=== PATIENT | female | born 1955 | race African-American/Black ===

== ENCOUNTER 2016-02-18 08:08 | Inpatient (IN) | payer MEDICARE, OTHER ==
[~2016-02-18] VITALS: Ht 171.4 cm; Wt 116.7 kg
[~2016-02-18 08:08] MED LIST: ACET500T68 PO; AMIO200T2 PO; ASPI81TA2 PO; CALC1TAB77 PO; CARV25TA2 PO; CARV6.25 PO; DESO15OI3 TP; DIPH25TA64 PO; ESOM40CA PO; FLUT16SP2 NS; LEVO500T38 PO; LOSA25TA4 PO; METO25TA2 PO; METO25TA4 PO; POTA10TA31 PO; SPIR25TA3 PO; TORS20TA2 PO; WARF2.5T7 PO; WARF5TAB7 PO
--- NOTE | 2016-02-18 08:42 | PHYS DOC ---
Past Medical History Past Medical History: A-Fib, Hypotension, ME Additional Past Medical Histor: ENLARGED LIVER Past Surgical History: Cholecystectomy, Pacemaker, Tonsillectomy Additional Past Surgical Histo: MITRAL VALVE REPLACED , GALLSTONE REMOVAL, HERNIA Alcohol Use: None Drug Use: None Adult General Chief Complaint Chief Complaint: RAPID HEART RATE HPI HPI Patient is a 60 year old female who presents with complaint of generalized weakness and fast heart rate. Patient states that approximately 1 hour prior to arrival, she felt her internal defibrillator shocked twice. Patient has history of atrial fibrillation and follows at [facility] with her cardiology group. The patient states that she has noticed a high heart rate over the past few days. The patient currently denies any nausea or pain at this time. The patient states that she does feel generalized fatigue but otherwise no symptoms. Patient states that her heart rate does continue to be high at this time though it seems to be slowing down since her initial shock. Review of Systems Review of Systems Constitutional: Generalized fatigue, Denies fever or chills [] Eyes: Denies change in visual acuity, redness, or eye pain [] HENT: Denies nasal congestion or sore throat [] Respiratory: Denies cough or shortness of breath [] Cardiovascular: Tachycardia, denies chest pain [] GI: Denies abdominal pain, nausea, vomiting, bloody stools or diarrhea [] : Denies dysuria or hematuria [] Musculoskeletal: Denies back pain or joint pain [] Integument: Denies rash or skin lesions [] Neurologic: Denies headache, focal weakness or sensory changes [] Endocrine: Denies polyuria or polydipsia [] Allergies Allergies Allergies Coded Allergies Type Severity Reaction Last Updated Verified Ytvowwm-Sfs-Cik Reductase Inhibitor Allergy Intermediate 08/16/13 Yes atorvastatin Allergy Intermediate MUSCLE PAIN 08/16/13 Yes codeine Allergy Intermediate Hives 08/16/13 Yes diltiazem HCl Allergy Intermediate 08/16/13 Yes ezetimibe Allergy Intermediate 08/16/13 Yes lovastatin Allergy Intermediate 08/16/13 Yes meperidine Allergy Intermediate Hives 08/16/13 Yes pravastatin Allergy Intermediate 08/16/13 Yes rosuvastatin calcium Allergy Intermediate Anxiety 08/16/13 Yes simvastatin Allergy Intermediate 08/16/13 Yes Physical Exam Physical Exam Constitutional: Alert, afebrile, no acute distress. [] HENT: Normocephalic, atraumatic, bilateral external ears normal, oropharynx moist, no oral exudates, nose normal. [] Eyes: PERRLA, EOMI, conjunctiva normal, no discharge. [] Neck: Normal range of motion, no tenderness, supple, no stridor. [] Cardiovascular: Tachycardia, irregular rhythm, no murmur [] Lungs & Thorax: Bilateral breath sounds clear to auscultation [] Abdomen: Bowel sounds normal, soft, no tenderness, no masses, no pulsatile masses. [] Skin: Warm, dry, no erythema, no rash. [] Back: No tenderness, no CVA tenderness. [] Extremities: No tenderness, no cyanosis, no clubbing, ROM intact, no edema. [] Neurologic: Alert and oriented X 3, normal motor function, normal sensory function, no focal deficits noted. [] Current Patient Data Vital Signs Vital Signs Date Time Temp Pulse Resp B/P Pulse Ox O2 Delivery O2 Flow Rate FiO2 02/18/16 09:49 73 20 120/50 99 Room Air 02/18/16 08:16 98.1 98.1 Lab Values Laboratory Tests Test 02/18/16 08:30 02/18/16 10:00 White Blood Count 5.1x10^3/uL (4.0-11.0) Red Blood Count 4.31x10^6/uL (3.50-5.40) Hemoglobin 14.0g/dL (12.0-15.5) Hematocrit 42.3% (36.0-47.0) Mean Corpuscular Volume 98fL (79-100) Mean Corpuscular Hemoglobin 33pg (25-35) Mean Corpuscular Hemoglobin Concent 33g/dL (31-37) Red Cell Distribution Width 15.2% (11.5-14.5) H Platelet Count 125x10^3/uL (140-400) L Neutrophils (%) (Auto) 64% (31-73) Lymphocytes (%) (Auto) 23% (24-48) L Monocytes (%) (Auto) 9% (0-9) Eosinophils (%) (Auto) 3% (0-3) Basophils (%) (Auto) 1% (0-3) Neutrophils # (Auto) 3.3x10^3uL (1.8-7.7) Lymphocytes # (Auto) 1.2x10^3/uL (1.0-4.8) Monocytes # (Auto) 0.5x10^3/uL (0.0-1.1) Eosinophils # (Auto) 0.1x10^3/uL (0.0-0.7) Basophils # (Auto) 0.0x10^3/uL (0.0-0.2) Sodium Level 141mmol/L (136-145) Potassium Level 3.5mmol/L (3.5-5.1) Chloride Level 102mmol/L (98-107) Carbon Dioxide Level 27mmol/L (21-32) Anion Gap 12 (6-14) Blood Urea Nitrogen 18mg/dL (7-20) Creatinine 1.4mg/dL (0.6-1.0) H Estimated GFR (Cockcroft-Gault) 46.4 Glucose Level 131mg/dL (70-99) H Calcium Level 9.2mg/dL (8.5-10.1) Magnesium Level 2.0mg/dL (1.8-2.4) Total Bilirubin 2.8mg/dL (0.2-1.0) H Direct Bilirubin 0.6mg/dL (0.0-0.2) H Aspartate Amino Transferase (AST) 25U/L (15-37) Alanine Aminotransferase (ALT) 22U/L (14-59) Alkaline Phosphatase 122U/L (46-116) H Creatine Kinase 84U/L (26-192) Creatine Kinase MB (Mass) 0.9ng/mL (0.0-3.6) Creatine Kinase MB Relative Index 1.1% (0-4) Troponin I Quantitative 0.030ng/mL (0.000-0.055) FP-Pfo-G-Type Natriuretic Peptide 2283pg/mL (0-124) H Total Protein 7.6g/dL (6.4-8.2) Albumin 4.2g/dL (3.4-5.0) Urine Collection Type Unknown Urine Color Yellow Urine Clarity Clear Urine pH 5.5 Urine Specific [place] 1.015 Urine Protein Tracemg/dL (NEG-TRACE) Urine Glucose (UA) Negativemg/dL (NEG) Urine Ketones (Stick) Negativemg/dL (NEG) Urine Blood Trace (NEG) Urine Nitrite Negative (NEG) Urine Bilirubin Negative (NEG) Urine Urobilinogen Dipstick 1.0mg/dL (0.2 mg/dL) Urine Leukocyte Esterase Trace (NEG) Urine RBC Occ/HPF (0-2) Urine WBC 1-4/HPF (0-4) Urine Squamous Epithelial Cells Mod/LPF Urine Bacteria 0/HPF (0-FEW) Urine Hyaline Casts Few/HPF Urine Mucus Mod/LPF Laboratory Tests 02/18/16 08:30 Laboratory Tests 02/18/16 08:30 EKG EKG Interpreted by me: Heart rate 105, atrial fibrillation, nonspecific intraventricular block, rightward axis, no acute ST elevations or depressions [] Radiology/Procedures Radiology/Procedures [facility] [address] [place], [place] [id number] IMAGING REPORT Signed PATIENT: MELODIE RENDON ACCOUNT: [id number] : 1955 LOCATION: ER AGE: 60 SEX: F EXAM STATUS: PRE ER ORD. PHYSICIAN: OLEGARIO SHETTY MD REASON: tachycardia PROCEDURE: PORTABLE CHEST 1V Exam: AP portable chest. History: Heart palpitations beginning today. Comparison: 05/01/2014. Findings: Cardiac silhouette is enlarged. Median sternotomy wires are present. Prosthetic aortic valve is identified. Multilead AICD by left subclavian approach is again seen. No pneumothorax, pleural effusion, or focal consolidation is appreciated. Pulmonary vascularity appears borderline. Impression: 1. Borderline pulmonary vascular congestion. DICTATED and SIGNED BY: CANDY AARON MD DATE: 02/18/16929 CC: OLEGARIO SHETTY MD; SUSANNE PATIÑO MD ~ [] Course & Med Decision Making Course & Med Decision Making Pertinent Labs and Imaging studies reviewed. (See chart for details) Patient remained hemodynamically stable while in the emergency department and patient's heart rate improved to the 80s. I contacted the media sales representative from [employer] who agreed to interrogate the pacemaker while in hospital. The patient 's symptoms of congestive heart failure appear to be worsening over the past week and the patient's lab work and x-rays are consistent with uncompensated heart failure. The patient will be admitted to the hospital for further treatment. I spoke with Dr. Patiño who accepted care patient in hospital. I spoke with Xiao Kimble, advanced practice provider for Dr. Carolina of cardiology who evaluated the patient in the emergency department and agreed with admission for treatment of congestive heart failure. Dragon Disclaimer Dragon Disclaimer This electronic medical record was generated, in whole or in part, using a voice recognition dictation system. Departure Departure Impression: Primary Impression: Acute on chronic diastolic CHF (congestive heart failure) Disposition: ADMITTED INPATIENT Admitting Physician: Susanne Patiño Condition: GUARDED Referrals: SUSANNE PATIÑO MD (PCP) OLEGARIO SHETTY MD Feb 18, 2016 08:42
[2016-02-18 09:12] LABS: BASO % 1 % (0-3); EOS % 3 % (0-3); HEMATOCRIT 42.3 % (36.0-47.0); LYMPH # 1.2 x10^3/uL (1.0-4.8); LYMPH % 23 % (24-48); MEAN CORPUSCULAR HEMOGLOBIN 33 pg (25-35); MEAN CORPUSCULAR HGB CONC 33 g/dL (31-37); MEAN CORPUSCULAR VOLUME 98 fL (79-100); MONO % 9 % (0-9); NEUT % 64 % (31-73); PLATELET COUNT 125 x10^3/uL (140-400); RED BLOOD COUNT 4.31 x10^6/uL (3.50-5.40); RED CELL DISTRIBUTION WIDTH 15.2 % (11.5-14.5)
--- NOTE | 2016-02-18 09:18 | EKG ---
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
[2016-02-18 09:27] LABS: CALCIUM 9.2 mg/dL (8.5-10.1); CREATININE 1.4 mg/dL (0.6-1.0); GFR 46.4; POTASSIUM 3.5 mmol/L (3.5-5.1)
[2016-02-18 09:33] LABS: ALBUMIN 4.2 g/dL (3.4-5.0); DIRECT BILIRUBIN 0.6 mg/dL (0.0-0.2); TOTAL BILIRUBIN 2.8 mg/dL (0.2-1.0); TOTAL PROTEIN 7.6 g/dL (6.4-8.2)
--- NOTE | 2016-02-18 09:35 | RAD ---
Exam: AP portable chest. History: Heart palpitations beginning today. Comparison: 05/01/2014. Findings: Cardiac silhouette is enlarged. Median sternotomy wires are present. Prosthetic aortic valve is identified. Multilead AICD by left subclavian approach is again seen. No pneumothorax, pleural effusion, or focal consolidation is appreciated. Pulmonary vascularity appears borderline. Impression: 1. Borderline pulmonary vascular congestion.
[2016-02-18 09:40] LABS: CKMB INDEX 1.1 % (0-4); CKMB MASS 0.9 ng/mL (0.0-3.6)
[2016-02-18 10:16] LABS: BILIRUBIN,URINE NEGATIVE (NEG); GLUCOSE,URINE NEGATIVE (NEG); NITRITE,URINE NEGATIVE (NEG); PH,URINE 5.5
[2016-02-18 10:18] LABS: WHITE BLOOD COUNT 5.1 x10^3/uL (4.0-11.0)
[2016-02-18] MEDS ORDERED: IV NORMAL SALINE 1000ML BAG 1,000 ML IV SCH (10:26)
[2016-02-18] MEDS ORDERED: ACETAMINOPHEN 325 MG TABLET. PO PRN (10:30)
[2016-02-18] MEDS ORDERED: ONDANSETRON PF 4 MG/2 ML VIAL. IV PRN (10:30)
[2016-02-18 10:42] LABS: PROTEIN,URINE TRACE mg/dL (NEG-TRACE); RBC,URINE OCC /HPF (0-2)
[2016-02-18 10:43] LABS: BACTERIA,URINE 0 /HPF (0-FEW); SQUAMOUS EPITHELIAL CELL,UR MOD /LPF
--- NOTE | 2016-02-18 11:58 | PDOC2 ---
SALVATORE DASILVA VICE PRESIDENT OF FINANCE 02/18/16 1158: CARDIAC CONSULT DATE OF CONSULT Date of Consult DATE: 02/18/16 TIME: 11:43 REASON FOR CONSULT Reason for Consult: CHF REFERRING PHYSICIAN Referring Physician: Dr. Posada SOURCE Source: Chart review, Patient HISTORY OF PRESENT ILLNESS HISTORY OF PRESENT ILLNESS This is a 60 yo female, with a history of CHF, cardiomyopathy s/p AICD, chronic AFIB, HTN, and HLP, who presented with complaints of weakness and elevated heart rate. Patient reports AICD firing x3 approximately 1 hr prior to arrival. Was up doing daily morning routine when the initial shock occurred. Patient reports she attempted to get back to bed when ICD fired again. Called EMS. Received another shock prior to EMS arriving. Patient reports taking her Digoxin and Metoprolol x2 follow discharge. Follows with pharmacy account director, Dr. Sampson, at [facility]. Patient reports that she has felt bloated, constipated, and slightly short of breath for the past week. Fell asleep last night and forgot to take her metoprolol. Otherwise, compliant with medications. Denies any chest pain, palpitations, dizziness, diaphoresis, orthopnea, or recent illness/fevers. Does report slight LE edema over he last week. HR presently controlled. Reports having normal cath in 2013. Most recent echo >6 months ago. PAST MEDICAL HISTORY Past Medical History Cardiovascular: AFIB, CHF, HTN, Hyperlipidemia, Valve insufficiency, Other (MVR ; NICM s/p Medtronic AICD) Pulmonary: JODY with CPAP CENTRAL NERVOUS SYSTEM: Other (No pertinent history) GI: GERD Heme/Onc: No pertinent hx, Other (Anticoagulation therapy) Hepatobiliary: No pertinent hx Psych: No pertinent hx Musculoskeletal: Osteoarthritis Rheumatologic: No pertinent hx Infectious disease: No pertinent hx ENT: No pertinent hx Renal/: Chronic renal insuff (CKD3) Endocrine: No pertinent hx Dermatology: Other (Keloid formations) PAST SURGICAL HISTORY Past Surgical History: Pacemaker (AICD), Cholecystectomy, Other (porcine MVR ) FAMILY HISTORY Family History: Coronary Artery Disease (father) SOCIAL HISTORY Social History Smoke: No ALCOHOL: none Drugs: None Lives: with Family Domestic Violence: Neg ALLERGIES ALLERGIES: Coded Allergies: Jcdohnu-Dyp-Dve Reductase Inhibitor (Verified Allergy, Intermediate, ) atorvastatin (Verified Allergy, Intermediate, MUSCLE PAIN, 08/16/13) codeine (Verified Allergy, Intermediate, Hives, 08/16/13) diltiazem HCl (Verified Allergy, Intermediate, 08/16/13) ezetimibe (Verified Allergy, Intermediate, 08/16/13) lovastatin (Verified Allergy, Intermediate, 08/16/13) meperidine (Verified Allergy, Intermediate, Hives, 08/16/13) pravastatin (Verified Allergy, Intermediate, 08/16/13) rosuvastatin calcium (Verified Allergy, Intermediate, Anxiety, 08/16/13) simvastatin (Verified Allergy, Intermediate, 08/16/13) ROS Review of System 14 point ROS conducted with pertinent positives noted above in HPI. PHYSICAL EXAM General: Alert, Oriented X3, Cooperative HEENT: Atraumatic, Mucous membr. moist/pink Lungs: Clear to auscultation, Normal air movement Heart: Normal S1, Normal S2, Other (IRRR, tele AFIB rate 76, 2/6 systolic murmur) Abdomen: No tenderness Extremities: Normal pulses, Other (trace LE edema ) Skin: No breakdown, No significant lesion Neuro: Normal speech, Sensation intact Psych/Mental Status: Mental status NL, Mood NL MUSCULOSKELETAL: Osteoarthritic changes both hands VITALS VITALS Vital Signs Date Time Temp Pulse Resp B/P Pulse Ox O2 Delivery O2 Flow Rate FiO2 02/18/16 10:58 73 20 118/67 100 Room Air 02/18/16 08:16 98.1 98.1 LABS Lab: Laboratory Tests Test 02/18/16 08:30 02/18/16 10:00 White Blood Count 5.1x10^3/uL (4.0-11.0) Red Blood Count 4.31x10^6/uL (3.50-5.40) Hemoglobin 14.0g/dL (12.0-15.5) Hematocrit 42.3% (36.0-47.0) Mean Corpuscular Volume 98fL (79-100) Mean Corpuscular Hemoglobin 33pg (25-35) Mean Corpuscular Hemoglobin Concent 33g/dL (31-37) Red Cell Distribution Width 15.2% (11.5-14.5) Platelet Count 125x10^3/uL (140-400) Neutrophils (%) (Auto) 64% (31-73) Lymphocytes (%) (Auto) 23% (24-48) Monocytes (%) (Auto) 9% (0-9) Eosinophils (%) (Auto) 3% (0-3) Basophils (%) (Auto) 1% (0-3) Neutrophils # (Auto) 3.3x10^3uL (1.8-7.7) Lymphocytes # (Auto) 1.2x10^3/uL (1.0-4.8) Monocytes # (Auto) 0.5x10^3/uL (0.0-1.1) Eosinophils # (Auto) 0.1x10^3/uL (0.0-0.7) Basophils # (Auto) 0.0x10^3/uL (0.0-0.2) Sodium Level 141mmol/L (136-145) Potassium Level 3.5mmol/L (3.5-5.1) Chloride Level 102mmol/L (98-107) Carbon Dioxide Level 27mmol/L (21-32) Anion Gap 12 (6-14) Blood Urea Nitrogen 18mg/dL (7-20) Creatinine 1.4mg/dL (0.6-1.0) Estimated GFR (Cockcroft-Gault) 46.4 Glucose Level 131mg/dL (70-99) Calcium Level 9.2mg/dL (8.5-10.1) Magnesium Level 2.0mg/dL (1.8-2.4) Total Bilirubin 2.8mg/dL (0.2-1.0) Direct Bilirubin 0.6mg/dL (0.0-0.2) Aspartate Amino Transf (AST/SGOT) 25U/L (15-37) Alanine Aminotransferase (ALT/SGPT) 22U/L (14-59) Alkaline Phosphatase 122U/L (46-116) Creatine Kinase 84U/L (26-192) Creatine Kinase MB (Mass) 0.9ng/mL (0.0-3.6) Creatine Kinase MB Relative Index 1.1% (0-4) Troponin I Quantitative 0.030ng/mL (0.000-0.055) HZ-Lqk-H-Type Natriuretic Peptide 2283pg/mL (0-124) Total Protein 7.6g/dL (6.4-8.2) Albumin 4.2g/dL (3.4-5.0) Urine Collection Type Unknown Urine Color Yellow Urine Clarity Clear Urine pH 5.5 Urine Specific [place] 1.015 Urine Protein Tracemg/dL (NEG-TRACE) Urine Glucose (UA) Negativemg/dL (NEG) Urine Ketones (Stick) Negativemg/dL (NEG) Urine Blood Trace (NEG) Urine Nitrite Negative (NEG) Urine Bilirubin Negative (NEG) Urine Urobilinogen Dipstick 1.0mg/dL (0.2 mg/dL) Urine Leukocyte Esterase Trace (NEG) Urine RBC Occ/HPF (0-2) Urine WBC 1-4/HPF (0-4) Urine Squamous Epithelial Cells Mod/LPF Urine Bacteria 0/HPF (0-FEW) Urine Hyaline Casts Few/HPF Urine Mucus Mod/LPF ECHOCARDIOGRAM ECHOCARDIOGRAM <Conclusion> The left ventricle is normal size. The systolic function is severely impaired. The Ejection Fraction is 20-25%. The left atrium is moderately dilated. There is trace to mild valvular aortic stenosis. Doppler and Color Flow revealed mild aortic regurgitation. There is a prosthetic mitral valve with normal function. Doppler and Color-flow revealed mild mitral regurgitation. Doppler and Color Flow revealed moderate tricuspid regurgitation. There is no evidence of significant pericardial effusion. DATE: 08/16/13 1706 ASSESSMENT/PLAN ASSESSMENT/PLAN 1. Acute on chronic systolic heart failure 2. Chronic AFIB, with RVR. warfarin therapy 3. NICM s/p AICD 4. Defibrillator discharge 5. HTN 6. HLP 7. s/p porcine mitral valve replacement 8. CKD3 Recommendations RVR likely induced by combination of HF and missed rate controlling therapy. Interrogate [employer] device check echo IV Diuresis with monitoring of renal function On dig and metoprolol; will increase metoprolol and convert to succinate. continue warfarin for stroke prophylaxis; check PT/INR Problems: GORDON ERWIN MD 02/18/16 2224: CARDIAC CONSULT ALLERGIES ALLERGIES: Coded Allergies: Tcprjbz-Dak-Bet Reductase Inhibitor (Verified Allergy, Intermediate, ) atorvastatin (Verified Allergy, Intermediate, MUSCLE PAIN, 08/16/13) codeine (Verified Allergy, Intermediate, Hives, 08/16/13) diltiazem HCl (Verified Allergy, Intermediate, 08/16/13) ezetimibe (Verified Allergy, Intermediate, 08/16/13) lovastatin (Verified Allergy, Intermediate, 08/16/13) meperidine (Verified Allergy, Intermediate, Hives, 08/16/13) pravastatin (Verified Allergy, Intermediate, 08/16/13) rosuvastatin calcium (Verified Allergy, Intermediate, Anxiety, 08/16/13) simvastatin (Verified Allergy, Intermediate, 08/16/13) ASSESSMENT/PLAN ASSESSMENT/PLAN Pt. seen and examined. 60 y.o with prior MVR and s/p ICD for NICM. ICD interrogation reveals afib with RVR which led to inappropriate shocks. Uptitrate b-blockers. Continue supportive care. LV lead turned off, unclear why. Will stabilize and have pt f/u with primary pharmacy account director. Problems: SALVATORE DASILVA APRN Feb 18, 2016 11:58 GORDON ERWIN MD Feb 18, 2016 22:24
[2016-02-18 13:39] LABS: INR 2.1 (0.8-1.1); PROTHROMBIN TIME PATIENT 22.6 SEC (11.7-14.0)
[2016-02-18] MEDS ORDERED: ACETAMINOPHEN 500 MG TABLET PO PRN (15:00)
[2016-02-18 19:00] VITALS: BP 124/65
[2016-02-18 19:46] VITALS: BP 109/51
[2016-02-18] MEDS ORDERED: METOPROLOL TART IMMED RELEASE 50 MG TABLET PO SCH (21:00)
[2016-02-18] MEDS ORDERED: METOPROLOL TART IMMED RELEASE 25 MG TABLET PO SCH (21:00)
[2016-02-18] MEDS: METOPROLOL SUCC 24HR ER 50 MG TAB.ER.24H. PO SCH (21:26)
[2016-02-18] MEDS ORDERED: WARFARIN 5 MG TABLET. PO ONE (22:00)
[2016-02-18 22:30] VITALS: BP 101/58
[2016-02-19 03:07] VITALS: BP 117/59
[2016-02-19 05:50] LABS: BASO % 1 % (0-3); EOS % 4 % (0-3); HEMATOCRIT 41.3 % (36.0-47.0); HEMOGLOBIN 13.6 g/dL (12.0-15.5); LYMPH # 1.1 x10^3/uL (1.0-4.8); LYMPH % 25 % (24-48); MEAN CORPUSCULAR HEMOGLOBIN 32 pg (25-35); MEAN CORPUSCULAR HGB CONC 33 g/dL (31-37); MEAN CORPUSCULAR VOLUME 99 fL (79-100); MONO % 12 % (0-9); NEUT % 59 % (31-73); PLATELET COUNT 126 x10^3/uL (140-400); RED BLOOD COUNT 4.19 x10^6/uL (3.50-5.40); RED CELL DISTRIBUTION WIDTH 15.1 % (11.5-14.5); WHITE BLOOD COUNT 4.3 x10^3/uL (4.0-11.0)
[2016-02-19 06:15] LABS: CREATININE 1.1 mg/dL (0.6-1.0); GFR 61.3; POTASSIUM 3.7 mmol/L (3.5-5.1)
[2016-02-19 07:00] VITALS: BP 127/95
--- NOTE | 2016-02-19 08:49 | CARD ---
APPROVED REPORT EXAM: Two-dimensional and M-mode echocardiogram with Doppler and color Doppler. Other Information Quality : Average Rhythm : Pacemaker INDICATION Atrial Fibrillation Surgery/Intervention Status/Post Mitral Valve Replacement: Mechanical ICD/Pacemaker: 2D DIMENSIONS RVDd3.9 (2.9-3.5cm)Left Atrium(2D)6.2 (1.6-4.0cm) IVSd1.2 (0.7-1.1cm)Aortic Root(2D)3.2 (2.0-3.7cm) LVDd5.6 (3.9-5.9cm)LVOT Diameter2.1 (1.8-2.4cm) PWd1.2 (0.7-1.1cm)LVDs5.0 (2.5-4.0cm) FS (%) 10.7 %SV35.1 ml LVEF(%)23.0 (>50%) Aortic Valve AoV Peak Fahad.268.0cm/sAoV VTI58.0cm AO Peak GR.28.7mmHgLVOT VTI 9.66cm AO Mean GR.15mmHgAVA (VTI)1.30cm2 AI P 1/2 [id number] Mitral Valve MV E Peak Gr.19mmHgMV E Mean Gr.10mmHg MV [id number] (PHT)1.31cm2 Tricuspid Valve TR P. [id number]/sRAP [id number] TR Peak Gr.09qdXvWLAN28amFk LEFT VENTRICLE The left ventricle is normal size. There is borderline concentric left ventricular hypertrophy. Left ventricle systolic function is severely impaired. The Ejection Fraction is 20-25%. There is global hy pokinesis of the left ventricle. Tissue Doppler imaging reveals moderate left ventricular diastolic d ysfunction. RIGHT VENTRICLE The right ventricle is mildly dilated. The right ventricular systolic function is normal. There is a pacemake rICD lead seen in the RV/RA. ATRIA The left atrium is severely dilated. The right atrium is moderately dilated. The interatrial septum i s intact with no evidence for an atrial septal defect or patent foramen ovale as noted on 2-D or Dopp ler imaging. AORTIC VALVE The aortic valve is calcified but opens well. Doppler and Color Flow revealed moderate aortic regurgi tation. There is mild aortic stenosis. MG 15 mm Hg, Peak gradient 29 mm Hg. MITRAL VALVE Calculated mitral valve area is 1.3 cm2 with maximum pressure gradient of 19 mmHg and mean pressure g radient of 10 mmHg. Doppler and Color Flow revealed moderate mitral regurgitation. There is a biopros thetic mitral valve. TRICUSPID VALVE The tricuspid valve is normal in structure. Doppler and Color Flow revealed moderate tricuspid regurg itation. There is moderate pulmonary hypertension. The PA pressure was estimated at 53 mmHg. There is no tricuspid valve stenosis. PULMONIC VALVE Doppler and Color Flow revealed trace pulmonic valvular regurgitation. There is no pulmonic valvular stenosis. GREAT VESSELS The aortic root is normal in size. The IVC is dilated and collapses <50% with inspiration. PERICARDIAL EFFUSION There is no evidence of significant pericardial effusion. Critical Notification Date: 02/18/2016 Time: 17:23 Physician Name:Dr. Carolina Critical Value: Yes <Conclusion> Left ventricle systolic function is severely impaired. The Ejection Fraction is 20-25%. There is global hypokinesis of the left ventricle. Tissue Doppler imaging reveals moderate left ventricular diastolic dysfunction. There is a pacemake rICD lead seen in the RV/RA. The left atrium is severely dilated. Doppler and Color Flow revealed moderate aortic regurgitation. Calculated mitral valve area is 1.3 cm2 with maximum pressure gradient of 19 mmHg and mean pressure g radient of 10 mmHg. Doppler and Color Flow revealed moderate mitral regurgitation. There is a bioprosthetic mitral valve. Doppler and Color Flow revealed moderate tricuspid regurgitation. There is moderate pulmonary hyperte nsion. The PA pressure was estimated at 53 mmHg. The IVC is dilated and collapses <50% with inspiration.
[2016-02-19] MEDS: LOSARTAN POTASSIUM 25 MG TABLET. PO SCH (09:00)
[2016-02-19] MEDS: AMIODARONE HCL 200 MG TABLET PO SCH (09:00)
--- NOTE | 2016-02-19 09:15 | PDOC ---
SUBJECTIVE Subjective Patient does feel better today her breathing is better she was given Lasix yesterday IV and had a good diuresis OBJECTIVE Objective Vital signs stable Vital Signs Vital Signs Date Time Temp Pulse Resp B/P Pulse Ox O2 Delivery O2 Flow Rate FiO2 02/19/16 07:00 97.5 65 16 127/95 100 Nasal Cannula 2.0 97.5 02/19/16 03:07 97.8 64 16 117/59 99 Nasal Cannula 2.0 97.8 02/18/16 22:30 98.3 75 20 101/58 100 Room Air 98.3 02/18/16 21:54 Room Air 02/18/16 21:26 72 109/51 02/18/16 20:00 Room Air 02/18/16 19:46 98.5 65 20 109/51 98 Room Air 98.5 02/18/16 19:00 97.6 74 18 124/65 98 Room Air 97.6 02/18/16 17:00 74 20 123/51 Room Air 02/18/16 16:00 70 20 104/56 Room Air 02/18/16 15:00 66 20 99/52 100 Room Air 02/18/16 14:00 70 20 124/51 100 Room Air 02/18/16 13:11 72 20 117/64 Room Air 02/18/16 10:58 73 20 118/67 100 Room Air 02/18/16 09:49 73 20 120/50 99 Room Air I & O Intake and Output 02/19/16 07:00 Intake Total 320 ml Output Total 200 ml Balance 120 ml Intake Oral 320 ml Output Urine Total 200 ml PHYSICAL EXAM Physical Exam AXOX3 lungs decrease BS heart Irreg abd soft ext no edema ASSESSMENT/PLAN Assessment/Plan [id number] H&P dictated 1- acute on chronic CHF 2-CKD 3 AFib and palpitation 4-HT, HLD Problems: COMMENT Lab Laboratory Tests Test 02/18/16 10:00 02/18/16 16:45 02/18/16 22:30 02/19/16 05:14 Urine Collection Type Unknown Urine Color Yellow Urine Clarity Clear Urine pH 5.5 Urine Specific [place] 1.015 Urine Protein Tracemg/dL (NEG-TRACE) Urine Glucose (UA) Negativemg/dL (NEG) Urine Ketones (Stick) Negativemg/dL (NEG) Urine Blood Trace (NEG) Urine Nitrite Negative (NEG) Urine Bilirubin Negative (NEG) Urine Urobilinogen Dipstick 1.0mg/dL (0.2 mg/dL) Urine Leukocyte Esterase Trace (NEG) Urine RBC Occ/HPF (0-2) Urine WBC 1-4/HPF (0-4) Urine Squamous Epithelial Cells Mod/LPF Urine Bacteria 0/HPF (0-FEW) Urine Hyaline Casts Few/HPF Urine Mucus Mod/LPF Troponin I Quantitative 0.129ng/mL (0.000-0.055) 0.082ng/mL (0.000-0.055) Digoxin Level 1.5ng/mL (0.9-2.0) Digoxin Last Dose Date 02/18/16 Digoxin Last Dose Time 0900 White Blood Count 4.3x10^3/uL (4.0-11.0) Red Blood Count 4.19x10^6/uL (3.50-5.40) Hemoglobin 13.6g/dL (12.0-15.5) Hematocrit 41.3% (36.0-47.0) Mean Corpuscular Volume 99fL (79-100) Mean Corpuscular Hemoglobin 32pg (25-35) Mean Corpuscular Hemoglobin Concent 33g/dL (31-37) Red Cell Distribution Width 15.1% (11.5-14.5) Platelet Count 126x10^3/uL (140-400) Neutrophils (%) (Auto) 59% (31-73) Lymphocytes (%) (Auto) 25% (24-48) Monocytes (%) (Auto) 12% (0-9) Eosinophils (%) (Auto) 4% (0-3) Basophils (%) (Auto) 1% (0-3) Neutrophils # (Auto) 2.5x10^3uL (1.8-7.7) Lymphocytes # (Auto) 1.1x10^3/uL (1.0-4.8) Monocytes # (Auto) 0.5x10^3/uL (0.0-1.1) Eosinophils # (Auto) 0.2x10^3/uL (0.0-0.7) Basophils # (Auto) 0.0x10^3/uL (0.0-0.2) Sodium Level 140mmol/L (136-145) Potassium Level 3.7mmol/L (3.5-5.1) Chloride Level 104mmol/L (98-107) Carbon Dioxide Level 28mmol/L (21-32) Anion Gap 8 (6-14) Blood Urea Nitrogen 15mg/dL (7-20) Creatinine 1.1mg/dL (0.6-1.0) Estimated GFR (Cockcroft-Gault) 61.3 Glucose Level 88mg/dL (70-99) Calcium Level 9.0mg/dL (8.5-10.1) SUSANNE PATIÑO MD Feb 19, 2016 09:15
[2016-02-19 09:27] LABS: PLT ESTIMATE DECREASED (ADEQUATE)
[2016-02-19] MEDS: ASPIRIN 81 MG TAB.CHEW PO SCH (09:35)
[2016-02-19] MEDS: POTASSIUM CHLORIDE 20 MEQ TABLET.ER. PO SCH (09:36)
[2016-02-19] MEDS: SPIRONOLACTONE 25 MG TABLET PO SCH (09:36)
[2016-02-19] MEDS: DIGOXIN 125 MCG TABLET PO SCH (09:37)
[2016-02-19] MEDS: FLUTICASONE 50MCG/NASAL SPRAY 16GM BOTTLE. NS SCH (10:15)
[2016-02-19] MEDS: FUROSEMIDE 40 MG/4 ML VIAL IVP SCH ×2 (10:16→14:25)
[2016-02-19 10:29] VITALS: BP 115/73
--- NOTE | 2016-02-19 10:58 | PDOC ---
VICTOR MANUEL PYLE NEWS OPERATIONS MANAGER 02/19/16 1058: CARDIO Progress Notes Date and Time Date of Service 02/19/2016 Time of Evaluation 1058 Subjective Subjective: No Chest Pain, No Palpitations, No Dizziness Vitals Vitals Vital Signs Date Time Temp Pulse Resp B/P Pulse Ox O2 Delivery O2 Flow Rate FiO2 02/19/16 10:29 97.5 64 18 115/73 98 Room Air 97.5 02/19/16 07:00 2.0 Weight Weight [ ] Input and Output Intake and Output Intake and Output 02/19/16 07:00 Intake Total 320 ml Output Total 200 ml Balance 120 ml Intake Oral 320 ml Output Urine Total 200 ml Laboratory Labs Laboratory Tests Test 02/18/16 16:45 02/18/16 22:30 02/19/16 05:14 Troponin I Quantitative 0.129ng/mL (0.000-0.055) 0.082ng/mL (0.000-0.055) Digoxin Level 1.5ng/mL (0.9-2.0) Digoxin Last Dose Date 02/18/16 Digoxin Last Dose Time 0900 White Blood Count 4.3x10^3/uL (4.0-11.0) Red Blood Count 4.19x10^6/uL (3.50-5.40) Hemoglobin 13.6g/dL (12.0-15.5) Hematocrit 41.3% (36.0-47.0) Mean Corpuscular Volume 99fL (79-100) Mean Corpuscular Hemoglobin 32pg (25-35) Mean Corpuscular Hemoglobin Concent 33g/dL (31-37) Red Cell Distribution Width 15.1% (11.5-14.5) Platelet Count 126x10^3/uL (140-400) Neutrophils (%) (Auto) 59% (31-73) Lymphocytes (%) (Auto) 25% (24-48) Monocytes (%) (Auto) 12% (0-9) Eosinophils (%) (Auto) 4% (0-3) Basophils (%) (Auto) 1% (0-3) Neutrophils # (Auto) 2.5x10^3uL (1.8-7.7) Lymphocytes # (Auto) 1.1x10^3/uL (1.0-4.8) Monocytes # (Auto) 0.5x10^3/uL (0.0-1.1) Eosinophils # (Auto) 0.2x10^3/uL (0.0-0.7) Basophils # (Auto) 0.0x10^3/uL (0.0-0.2) Platelet Estimate Decreased (ADEQUATE) Large Platelets Few Sodium Level 140mmol/L (136-145) Potassium Level 3.7mmol/L (3.5-5.1) Chloride Level 104mmol/L (98-107) Carbon Dioxide Level 28mmol/L (21-32) Anion Gap 8 (6-14) Blood Urea Nitrogen 15mg/dL (7-20) Creatinine 1.1mg/dL (0.6-1.0) Estimated GFR (Cockcroft-Gault) 61.3 Glucose Level 88mg/dL (70-99) Calcium Level 9.0mg/dL (8.5-10.1) Physical Exam HEENT: Neck Supple W Full Motion Chest: Symmetric LUNGS: Other (scattered basilar crackles) Heart: S1S2, RRR, other (?S3; tele V paced; ICD in left pectoral region with keloided incision ) Abdomen: Soft N/T Extremities: No Edema Neurology: alert, oriented, follow commands Assessment Assessment 1. Acute on chronic systolic heart failure echo with LVEF 20-25% continue diuresis 2. Chronic AFIB, with RVR. warfarin therapy therapeutic INR on wafarin continue amiodarone 3. NICM s/p AICD ICD fired after missed BB dose converted to long acting BB 4. HTN control with meds 5. HLP 6. 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 seen and examined. Doing better today. No recurrent afib w/ rvr or ICD shocks. lungs clr. No edema. labs stable. Continue current medical therapy. We will likely dc tomorrow and f/u with Dr. Sampson (primary bungy jump master) at [place]. VICTOR MANUEL PYLE APRN Feb 19, 2016 10:58 GORDON ERWIN MD Feb 19, 2016 22:42
[2016-02-19] MEDS ORDERED: LORAZEPAM 0.5 MG TABLET. PO PRN (14:15)
[2016-02-19] MEDS ORDERED: ZOLPIDEM 5 MG TABLET. PO PRN (14:15)
[2016-02-19 15:00] VITALS: BP 117/57
[2016-02-19] MEDS ORDERED: WARFARIN 5 MG TABLET. PO SCH (16:00)
--- NOTE | 2016-02-19 19:22 | PREOP HP ---
DATE OF SERVICE: HISTORY OF PRESENT ILLNESS: The patient is a 60-year-old lady very well known to me, who presented to the Emergency Room complaining of palpitation, rapid heartbeat, generalized weakness, not feeling good in general and increasing shortness of breath. She is known to have history of atrial fibrillation. She does have AICD and she felt that her AICD was defibrillating twice prior to her presentation. She usually sees Dr. Sampson at ____ [facility]. She does have previous history of congestive heart failure. She denies chest pain, denies shortness of breath, denies fever, denies nausea or vomiting, diarrhea or constipation. She does have mild increase in her shortness of breath and dyspnea on exertion, palpitations as mentioned above. PAST MEDICAL HISTORY: Significant for coronary artery disease, congestive heart failure, mitral valve replacement, cardiomyopathy, pacemaker and AICD placement, anticoagulation treatment, hyperlipidemia, atrial fibrillation, hypertension, sleep apnea, chronic kidney disease, gastroesophageal reflux disease, hiatal hernia, previous history of cholecystectomy, constipation, kidney stones, previous history of UTIs. FAMILY HISTORY: Positive for hypertension, diabetes, cardiovascular disease, and breast cancer. SOCIAL HISTORY: She does not smoke or drink alcohol or use drugs. REVIEW OF SYSTEMS: CONSTITUTIONAL: She denies fever or chills. Denies weight loss. EYES: Denies visual changes. HEENT: Denies nasal congestion or sore throat. RESPIRATORY: She does have mild increased shortness of breath and dyspnea on exertion. CARDIOVASCULAR: She does have tachycardia and palpitations. Denies chest pain. GASTROINTESTINAL: Denies abdominal pain, nausea, or vomiting. GENITOURINARY: Denies dysuria. She does have stress incontinence. MUSCULOSKELETAL: She does have osteoarthritis. DERMATOLOGY: Denies rash. NEUROLOGY: Denies headache or focal weakness. PHYSICAL EXAMINATION: GENERAL: She is alert and oriented, in no acute distress, cooperative. HEENT: Tympanic membranes clear. Pharynx clear. Mucous membranes moist. NECK: Supple. HEART: Irregularly irregular ____ mildly tachycardic. LUNGS: With decreased breath sounds in the bases. ABDOMEN: Soft, nontender, no organomegaly. SKIN: Warm and dry. EXTREMITIES: She has no tenderness, no clubbing, no edema. NEUROLOGIC: Alert and oriented and no focal deficit. IMPRESSION: 1. Acute on chronic diastolic congestive heart failure. 2. Hypertension. 3. Hypertensive cardiovascular disease. 4. Coronary artery disease. 5. Valvular heart disease. 6. Atrial fibrillation, status post pacemaker and automatic implantable cardioverter-defibrillator. 7. Hyperlipidemia. 8. Sleep apnea. 9. Gastroesophageal reflux disease. 10. History of hiatal hernia. 11. History of kidney stones. SUSANNE PATIÑO MD DR: STEVE/luna JOB#: [id number] / [id number]
[2016-02-19 19:48] VITALS: BP 99/54
[2016-02-19] MEDS: METOPROLOL SUCC 24HR ER 50 MG TAB.ER.24H. PO SCH (20:41)
[2016-02-19 22:10] VITALS: BP 94/54
[2016-02-20 02:23] VITALS: BP 138/69
[2016-02-20 05:04] LABS: HEMOGLOBIN 14.3 g/dL (12.0-15.5); RED BLOOD COUNT 4.35 x10^6/uL (3.50-5.40); RED CELL DISTRIBUTION WIDTH 15.1 % (11.5-14.5); WHITE BLOOD COUNT 4.4 x10^3/uL (4.0-11.0)
[2016-02-20 05:07] LABS: INR 1.9 (0.8-1.1); PROTHROMBIN TIME PATIENT 20.3 SEC (11.7-14.0)
[2016-02-20 05:41] LABS: CALCIUM 8.9 mg/dL (8.5-10.1); CREATININE 1.1 mg/dL (0.6-1.0); GFR 61.3; POTASSIUM 3.8 mmol/L (3.5-5.1)
[2016-02-20 07:00] VITALS: BP 112/57
[2016-02-20] MEDS: FUROSEMIDE 40 MG/4 ML VIAL IVP SCH (08:59)
[2016-02-20] MEDS: ASPIRIN 81 MG TAB.CHEW PO SCH (09:00)
[2016-02-20] MEDS: DIGOXIN 125 MCG TABLET PO SCH (09:00)
[2016-02-20] MEDS: AMIODARONE HCL 200 MG TABLET PO SCH (09:00)
[2016-02-20] MEDS: POTASSIUM CHLORIDE 20 MEQ TABLET.ER. PO SCH (09:00)
[2016-02-20] MEDS: SPIRONOLACTONE 25 MG TABLET PO SCH (09:01)
[2016-02-20] MEDS: FLUTICASONE 50MCG/NASAL SPRAY 16GM BOTTLE. NS SCH (09:11)
[2016-02-20] MEDS ORDERED: WARFARIN 2.5 MG TABLET. PO ONE (09:15)
[2016-02-20] MEDS ORDERED: AMIODARONE HCL 200 MG TABLET PO ONE (09:45)
[2016-02-20] MEDS: LOSARTAN POTASSIUM 25 MG TABLET. PO SCH (09:59)
--- NOTE | 2016-02-20 10:22 | PDOC ---
SUBJECTIVE Subjective She is pleasant and cooperative she continues to be in and out of . A. fib and her heart rate is in the range of 60s to 110, she has refused amiodarone yesterday is this has been stopped by her medical physiologist but I advised her to resume that today and we will also increase her beta dunia dose OBJECTIVE Vital Signs Vital Signs Date Time Temp Pulse Resp B/P Pulse Ox O2 Delivery O2 Flow Rate FiO2 02/20/16 09:59 82 122/57 02/20/16 09:58 90 122/57 02/20/16 09:00 75 02/20/16 08:00 Nasal Cannula 2.0 02/20/16 07:00 97.5 91 18 112/57 96 Nasal Cannula 2.0 97.5 02/20/16 02:23 97.8 79 20 138/69 99 Nasal Cannula 2.0 97.8 02/19/16 22:10 98.4 67 20 94/54 98 Nasal Cannula 2.0 98.4 02/19/16 20:41 66 95/48 02/19/16 20:00 Nasal Cannula 2.0 02/19/16 19:48 97.7 64 20 99/54 100 Nasal Cannula 2.0 97.7 02/19/16 15:00 98.2 64 17 117/57 99 Nasal Cannula 98.2 02/19/16 10:29 97.5 64 18 115/73 98 Room Air 97.5 I & O Intake and Output 02/20/16 07:00 Intake Total 500 ml Output Total 3600 ml Balance -3100 ml Intake Oral 500 ml Output Urine Total 3600 ml PHYSICAL EXAM Physical Exam Lungs clear Heart regular Abdomen soft Extremities no edema ASSESSMENT/PLAN Assessment/Plan continues to be in and out of . A. fib and her heart rate is in the range of 60s to 110, she has refused amiodarone yesterday as this has been stopped by her medical physiologist but I advised her to resume that today and we will also increase her beta dunia dose to control her rate, also plans to increase her activity today and hopefully if her heart rate stabilized she can be discharged home tomorrow was cardiac rehabilitation Problems: COMMENT Lab Laboratory Tests Test 02/20/16 04:34 White Blood Count 4.4x10^3/uL (4.0-11.0) Red Blood Count 4.35x10^6/uL (3.50-5.40) Hemoglobin 14.3g/dL (12.0-15.5) Hematocrit 43.0% (36.0-47.0) Mean Corpuscular Volume 99fL (79-100) Mean Corpuscular Hemoglobin 33pg (25-35) Mean Corpuscular Hemoglobin Concent 33g/dL (31-37) Red Cell Distribution Width 15.1% (11.5-14.5) Platelet Count 130x10^3/uL (140-400) Prothrombin Time 20.3SEC (11.7-14.0) Prothromb Time International Ratio 1.9 (0.8-1.1) Sodium Level 141mmol/L (136-145) Potassium Level 3.8mmol/L (3.5-5.1) Chloride Level 104mmol/L (98-107) Carbon Dioxide Level 29mmol/L (21-32) Anion Gap 8 (6-14) Blood Urea Nitrogen 15mg/dL (7-20) Creatinine 1.1mg/dL (0.6-1.0) Estimated GFR (Cockcroft-Gault) 61.3 Glucose Level 89mg/dL (70-99) Calcium Level 8.9mg/dL (8.5-10.1) SUSANNE PATIÑO MD Feb 20, 2016 10:22
--- NOTE | 2016-02-20 10:59 | PDOC ---
VICTOR MANUEL PYLE SPOILAGE WORKER 02/20/16 1059: CARDIO Progress Notes Date and Time Date of Service 02/20/2016 Time of Evaluation 1058 Subjective Subjective: No Chest Pain, No shortness of breath, No Palpitations, No Dizziness, Other (feeling much better) Vitals Vitals Vital Signs Date Time Temp Pulse Resp B/P Pulse Ox O2 Delivery O2 Flow Rate FiO2 02/20/16 09:59 82 122/57 02/20/16 08:00 Nasal Cannula 2.0 02/20/16 07:00 97.5 18 96 97.5 Weight Weight [ ] Input and Output Intake and Output Intake and Output 02/20/16 07:00 Intake Total 500 ml Output Total 3600 ml Balance -3100 ml Intake Oral 500 ml Output Urine Total 3600 ml Laboratory Labs Laboratory Tests Test 02/20/16 04:34 White Blood Count 4.4x10^3/uL (4.0-11.0) Red Blood Count 4.35x10^6/uL (3.50-5.40) Hemoglobin 14.3g/dL (12.0-15.5) Hematocrit 43.0% (36.0-47.0) Mean Corpuscular Volume 99fL (79-100) Mean Corpuscular Hemoglobin 33pg (25-35) Mean Corpuscular Hemoglobin Concent 33g/dL (31-37) Red Cell Distribution Width 15.1% (11.5-14.5) Platelet Count 130x10^3/uL (140-400) Prothrombin Time 20.3SEC (11.7-14.0) Prothromb Time International Ratio 1.9 (0.8-1.1) Sodium Level 141mmol/L (136-145) Potassium Level 3.8mmol/L (3.5-5.1) Chloride Level 104mmol/L (98-107) Carbon Dioxide Level 29mmol/L (21-32) Anion Gap 8 (6-14) Blood Urea Nitrogen 15mg/dL (7-20) Creatinine 1.1mg/dL (0.6-1.0) Estimated GFR (Cockcroft-Gault) 61.3 Glucose Level 89mg/dL (70-99) Calcium Level 8.9mg/dL (8.5-10.1) Microbiology Micro Microbiology 02/18/16 Urine Culture - Preliminary, Resulted 1/9/17 Urine Culture Result 1 (DOMINIC) - Preliminary, Resulted Physical Exam HEENT: Neck Supple W Full Motion Chest: Symmetric LUNGS: Clear to Auscultation Heart: S1S2, RRR, other Abdomen: Soft N/T Extremities: No Edema Neurology: alert, oriented, follow commands Assessment Assessment 1. Acute on chronic systolic heart failure echo with LVEF 20-25% continue diuresis symptoms significantly improved 2. Chronic AFIB, with RVR. warfarin therapy therapeutic INR on wafarin continue amiodarone @ usual dosage; blood level with not rapidly decrease with missed dosages as half - life about 30 days 3. NICM s/p AICD ICD fired after missed BB dose LV lead not activated - ? converted to long acting BB with dosage increased to 100 mg daily today may have better tolerance with BID dosing rather than once daily dosing and continue to use succinate version 4. HTN control with meds 5. HLP 6. 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 GORDON ERWIN MD 02/20/16 2243: CARDIO Progress Notes Plan Plan Pt. seen and examined. Agree with above FREEZER LABORATORY TECHNICIAN note No acute events overnight. Denies any chest pain/dyspnea. Exam is wnl. Continue supportive care. VICTOR MANUEL PYLE APRN Feb 20, 2016 10:59 GORDON ERWIN MD Feb 20, 2016 22:43
[2016-02-20 11:00] VITALS: BP 130/60
[2016-02-20 15:00] VITALS: BP 121/59
[2016-02-20] MEDS ORDERED: HYDROXYZINE PAMOATE 25 MG CAPSULE PO PRN (15:00)
[2016-02-20] MEDS: FUROSEMIDE 40 MG TABLET PO SCH (15:05)
[2016-02-20] MEDS ORDERED: WARFARIN 7.5 MG TABLET. PO ONE (16:00)
[2016-02-20 19:20] VITALS: BP 96/44
[2016-02-20] MEDS ORDERED: METOPROLOL SUCC 24HR ER 50 MG TAB.ER.24H. PO SCH (21:00)
[2016-02-20 23:42] VITALS: BP 112/65
[2016-02-21 03:25] VITALS: BP 89/47
[2016-02-21 06:28] LABS: HEMOGLOBIN 14.2 g/dL (12.0-15.5); RED BLOOD COUNT 4.41 x10^6/uL (3.50-5.40); RED CELL DISTRIBUTION WIDTH 15.1 % (11.5-14.5)
[2016-02-21 06:35] LABS: INR 1.9 (0.8-1.1); PROTHROMBIN TIME PATIENT 20.3 SEC (11.7-14.0)
[2016-02-21 06:41] LABS: CALCIUM 9.3 mg/dL (8.5-10.1); CREATININE 1.2 mg/dL (0.6-1.0); GFR 55.4; POTASSIUM 3.7 mmol/L (3.5-5.1)
[2016-02-21 07:55] VITALS: BP 117/55
[2016-02-21] MEDS: POTASSIUM CHLORIDE 20 MEQ TABLET.ER. PO SCH (08:23)
[2016-02-21] MEDS: ASPIRIN 81 MG TAB.CHEW PO SCH (08:23)
[2016-02-21] MEDS: FLUTICASONE 50MCG/NASAL SPRAY 16GM BOTTLE. NS SCH (08:23)
[2016-02-21] MEDS: AMIODARONE HCL 200 MG TABLET PO SCH (08:24)
[2016-02-21] MEDS: SPIRONOLACTONE 25 MG TABLET PO SCH (08:25)
[2016-02-21] MEDS: DIGOXIN 125 MCG TABLET PO SCH (08:25)
[2016-02-21 08:29] VITALS: BP 117/55
[2016-02-21] MEDS: FUROSEMIDE 40 MG TABLET PO SCH (08:29)
[2016-02-21] MEDS: LOSARTAN POTASSIUM 25 MG TABLET. PO SCH (08:29)
[2016-02-21] MEDS ORDERED: HYDR25CA75 PO (09:55)
[2016-02-21] MEDS ORDERED: POTA20TA4 PO (09:55)
[2016-02-21] MEDS ORDERED: WARF6TAB7 PO (09:55)
[2016-02-21] MEDS ORDERED: METO100T2 PO (09:55)
[2016-02-21] MEDS ORDERED: DIGO125T16 PO (09:55)
[2016-02-21] MEDS ORDERED: AMIO200T2 PO (09:55)
--- NOTE | 2016-02-21 09:57 | PDOC3 ---
Discharge Summary* Date of Admission: Feb 18, 2016 Date of Discharge: Feb 21, 2016 Admitting Diagnosis Problems Medical Problems: (1) Acute on chronic diastolic CHF (congestive heart failure) Status: Acute (2) Palpitation Status: Acute Final Diagnosis 1. Acute on chronic diastolic congestive heart failure. Resolved 2-A fib with RVR better with dig/amiodarone and higher metoprolol 3. Hypertension. 4. Hypertensive cardiovascular disease. 5. Coronary artery disease. 6. Valvular heart disease. 7. status post pacemaker and automatic implantable cardioverter-defibrillator. 8. Hyperlipidemia. 9. Sleep apnea. 10. Gastroesophageal reflux disease. 11. History of hiatal hernia. 12. History of kidney stones. Problems Medical Problems: (1) Acute on chronic diastolic CHF (congestive heart failure) Status: Acute (2) Palpitation Status: Acute CONSULTS cardiology Procedures CXR Brief Hospital Course Ms. Ponce is a 60 old [sex] who presented with complaint of palpitation and having a her AICD fire off twice, she apparently has not been taking amiodarone under the direction of her credit specialist since he had she has been stable for long time, she denies chest pain she does have mild dyspnea on exertion and minimal swelling the lower extremities or chest x-ray showed mild exacerbation of her congestive heart failure she was treated with IV Lasix and for her rate she was started back on the digoxin and amiodarone since she was back in paroxysmal A. fib with rapid ventricular response she did not require to be on any drips and responded nicely to digoxin increase in metoprolol dose and starting her back on amiodarone, she is currently feeling much better and back to her diuretic by mouth she is stable to be discharged and followed up as outpatient she will see her credit specialist in the next months and will see me in the office in 2 weeks Disposition/Orders: D/C to Home CONDITION AT DISCHARGE: Improved, Stable Diet: Cardiac, Consistent Carbohydrate Scheduled Amiodarone Hcl (Amiodarone Hcl) 200 MG PO DAILY Aspirin (Aspirin) 81 MG PO DAILY (Reported) Calcium Carbonate/Vitamin D3 (Calcium 500+D Tablet Chew) 1 EACH PO DAILY ( Reported) Desonide (Desonide) 15 GM TP BID (Reported) Digoxin (Lanoxin) 125 MCG PO DAILY Fluticasone Propionate (Flonase) 1 SPRAY NS DAILY (Reported) Losartan Potassium (Losartan Potassium) 25 MG PO HS (Reported) Metoprolol Tartrate (Metoprolol Tartrate) 1 TAB PO BID Potassium Chloride (Klor-Con M20) 10 MEQ PO DAILYWBKFT Spironolactone (Spironolactone) 25 MG PO DAILY (Reported) Torsemide (Torsemide) 20 MG PO DAILY08 (Reported) Warfarin Sodium (Warfarin Sodium) 6 MG PO DAILY Scheduled PRN Acetaminophen (Acetaminophen) 1,000 MG PO Q6HRS PRN PRN (Reported) Diphenhydramine Hcl (Benadryl Allergy) 25 MG PO PRN (Reported) Esomeprazole Magnesium (Nexium Capsule) 40 MG PO PRN (Reported) Hydroxyzine Pamoate (Hydroxyzine Pamoate) 25 MG PO PRN Q6HRS PRN PRN ITCHING Discontinued Medications Amiodarone Hcl (Amiodarone Hcl) 200 MG PO DAILY (Reported) Levofloxacin (Levaquin) 500 MG PO DAILY Metoprolol Tartrate (Metoprolol Tartrate) 1 TAB PO BID (Reported) Warfarin Sodium (Warfarin Sodium) 5 MG PO DAILY (Reported) FOLLOW UP APPOINTMENT: Dr. Bhupinder Díaz cardiology 2-[address] Patiño 2 weeks Time Spent Total time spent with patient [] minutes for coordination of care, counseling, and education. SUSANNE PATIÑO MD Feb 21, 2016 09:57
--- NOTE | 2016-02-21 09:57 | PDOC ---
SUBJECTIVE Subjective She does feel much better she does not have any more palpitation OBJECTIVE Objective Blood pressure and heart rate is stabilized Vital Signs Vital Signs Date Time Temp Pulse Resp B/P Pulse Ox O2 Delivery O2 Flow Rate FiO2 02/21/16 08:29 69 117/55 02/21/16 08:25 60 89/47 02/21/16 08:24 60 89/47 02/21/16 07:55 98.3 61 18 117/55 100 Room Air 98.3 02/21/16 07:51 Room Air 02/21/16 03:25 97.8 60 22 89/47 97 Room Air 97.8 02/20/16 23:42 97.7 88 24 112/65 94 Room Air 97.7 02/20/16 21:37 71 109/57 02/20/16 20:00 Nasal Cannula 2.0 02/20/16 19:20 97.9 85 24 96/44 98 Nasal Cannula 2.0 97.9 02/20/16 15:00 97.7 77 18 121/59 99 Nasal Cannula 2.0 97.7 02/20/16 11:00 97.9 79 18 130/60 98 Nasal Cannula 2.0 97.9 02/20/16 09:59 82 122/57 02/20/16 09:58 90 122/57 I & O Intake and Output 02/21/16 07:00 Intake Total 500 ml Output Total 475 ml Balance 25 ml Intake Oral 500 ml Output Urine Total 475 ml # Voids 3 PHYSICAL EXAM Physical Exam Lungs clear Heart regular rate and rhythm at present time Abdomen soft and nontender Extremities no edema ASSESSMENT/PLAN Assessment/Plan 1. Acute on chronic diastolic congestive heart failure. Resolved 2-A fib with RVR better with dig/amiodarone and higher metoprolol 3. Hypertension. 4. Hypertensive cardiovascular disease. 5. Coronary artery disease. 6. Valvular heart disease. 7. status post pacemaker and automatic implantable cardioverter-defibrillator. 8. Hyperlipidemia. 9. Sleep apnea. 10. Gastroesophageal reflux disease. 11. History of hiatal hernia. 12. History of kidney stones. home today , discussed medication . f/u out pt Problems: COMMENT Lab Laboratory Tests Test 02/21/16 05:15 White Blood Count 4.0x10^3/uL (4.0-11.0) Red Blood Count 4.41x10^6/uL (3.50-5.40) Hemoglobin 14.2g/dL (12.0-15.5) Hematocrit 44.0% (36.0-47.0) Mean Corpuscular Volume 100fL (79-100) Mean Corpuscular Hemoglobin 32pg (25-35) Mean Corpuscular Hemoglobin Concent 32g/dL (31-37) Red Cell Distribution Width 15.1% (11.5-14.5) Platelet Count 138x10^3/uL (140-400) Prothrombin Time 20.3SEC (11.7-14.0) Prothromb Time International Ratio 1.9 (0.8-1.1) Sodium Level 140mmol/L (136-145) Potassium Level 3.7mmol/L (3.5-5.1) Chloride Level 105mmol/L (98-107) Carbon Dioxide Level 30mmol/L (21-32) Anion Gap 5 (6-14) Blood Urea Nitrogen 15mg/dL (7-20) Creatinine 1.2mg/dL (0.6-1.0) Estimated GFR (Cockcroft-Gault) 55.4 Glucose Level 86mg/dL (70-99) Calcium Level 9.3mg/dL (8.5-10.1) SUSANNE PATIÑO MD Feb 21, 2016 09:57
[2016-02-21] MEDS ORDERED: WARFARIN 5 MG TABLET. PO SCH (16:00)
== END 2016-02-21 13:30 | disposition home or self-care (01) | DRG 291 ==
LOC: ER 08:08 → ED HOLD 10:17 → 2 SOUTH 18:08
PROVIDERS: ADMIT Internal Medicine; ATTEND Internal Medicine
DX: I13.0 Hypertensive heart and chronic kidney disease with heart failure and stage 1 through stage 4 chronic kidney disease, or unspecified chronic kidney disease (principal); I50.43 Acute on chronic combined systolic (congestive) and diastolic (congestive) heart failure; N17.9 Acute kidney failure, unspecified; I42.9 Cardiomyopathy, unspecified; E78.5 Hyperlipidemia, unspecified; G47.33 Obstructive sleep apnea (adult) (pediatric); I25.10 Atherosclerotic heart disease of native coronary artery without angina pectoris; I48.2 Chronic atrial fibrillation; K21.9 Gastro-esophageal reflux disease without esophagitis; K59.00 Constipation, unspecified; M19.90 Unspecified osteoarthritis, unspecified site; N18.3 Chronic kidney disease, stage 3 (moderate); Z79.01 Long term (current) use of anticoagulants; Z80.3 Family history of malignant neoplasm of breast; Z82.49 Family history of ischemic heart disease and other diseases of the circulatory system; Z83.3 Family history of diabetes mellitus; Z87.440 Personal history of urinary (tract) infections; Z87.442 Personal history of urinary calculi; Z90.49 Acquired absence of other specified parts of digestive tract; Z95.2 Presence of prosthetic heart valve; Z95.3 Presence of xenogenic heart valve; Z95.810 Presence of automatic (implantable) cardiac defibrillator; Z88.6 Allergy status to analgesic agent; Z88.8 Allergy status to other drugs, medicaments and biological substances
CPT/HCPCS: 36415; 71010; 80048; 80076; 80162; 81001; 82553; 83735; 83880; 84484; 85007; 85027; 85610; 87086; 93005; 93306; J1940; Q0177; 99285-25

== ENCOUNTER → 2016-07-22 | Day surgery (SDC) | payer MEDICARE, OTHER ==
[~2016-07-22] MED LIST changes: +ASPI-630 PO; -ASPI81TA2 PO; +DIGO125T16 PO; +HYDR25CA75 PO; +IV RINGERS,LACTATED 1000ML 1,000 ML IV SCH; -LEVO500T38 PO; +LEVO500T59 PO; +LIDOCAINE 1% 1 ML SYRINGE. ID PRN; +LIDOCAINE 2% PF Vial for OR 5 ML VIAL. ONE; +METO100T2 PO; +ONDANSETRON PF 4 MG/2 ML VIAL. IV PRN; +POTA20TA4 PO; +PROCHLORPERAZINE 10 MG/2 ML VIAL. IV PRN; +PROPOFOL 20 ML IV ONE; -WARF2.5T7 PO; +WARF2.5T71 PO; +WARF3TAB7 PO; +WARF6TAB7 PO
[2016-07-22 17:12] VITALS: BP 106/52
--- NOTE | 2016-07-23 08:37 | HP ---
ADMIT DATE: 07/22/2016 REASON FOR CONSULTATION: Intractable nausea and vomiting. REFERRING PHYSICIAN: Dr. Susanen Whitfield. HISTORY OF PRESENT ILLNESS: This is a 61-year-old -[place] female whose past medical history is significant for coronary artery disease, congestive heart failure, cardiomyopathy, status post defibrillator placement, chronic renal insufficiency, status post mitral valve replacement, history of cholelithiasis status post cholecystectomy, hyperlipidemia, obesity, atrial fibrillation, keloid formation, seen with intractable nausea and vomiting. The patient states she has lost approximately 25 pounds over the past several months, inability to take p.o. There is no history of ulcers, no history of diabetes. Previous lab work ____ reportedly normal as well. With continued symptoms, she requests additional evaluation. PAST MEDICAL HISTORY: Cholelithiasis status post cholecystectomy, hyperlipidemia, coronary artery disease, congestive heart failure, AFib status post AICD placement, history of mitral valve replacement. ALLERGIES: INCLUDE STATINS, DILTIAZEM, LOVASTATIN. MEDICATIONS: Include amiodarone 200 mg daily, aspirin 81 mg daily, calcium daily, desonide ointment b.i.d., digoxin 0.125 mg daily, Benadryl 25 mg daily, Nexium 40 mg daily, Flonase spray daily, hydroxyzine 25 mg p.r.n., losartan 25 mg daily, metoprolol 100 mg b.i.d., potassium chloride 10 mEq daily, Aldactone 25 mg daily, torsemide 20 mg daily and warfarin 3 mg nightly. FAMILY AND SOCIAL HISTORY: Does not drink or smoke at this time. Family history is noncontributory. REVIEW OF SYSTEMS: Per records with extensive cardiac history. PHYSICAL EXAMINATION: VITAL SIGNS: Temperature is 98.6, pulse 61, respirations 20. HEENT: Reveals normocephalic and atraumatic head. Pupils and extraocular muscles not tested. Sclerae anicteric. NECK: Supple. LUNGS: Clear. CARDIOVASCULAR: Reveals an S1, S2 with a 2/6 systolic ejection murmur heard best at lower left sternal border consistent with mitral valve replacement, AICD was also noted. ABDOMEN: Reveals a soft abdomen, normal bowel sounds, epigastric tenderness to deep palpation with right upper quadrant cholecystectomy incision. EXTREMITIES: Reveals no cyanosis, clubbing or edema. IMPRESSION: Intractable nausea and vomiting status post cholecystectomy, etiology is to be determined. Differential does include gastric bypass, gastroparesis, peptic ulcer disease, celiac disease among others. Therefore, I recommend upper endoscopy to further assess. If this is unrevealing, gastric emptying study and CT of the abdomen and pelvis would be pursued. I would like to thank Dr. Susanne Whitfield for allowing us to consult and participate in the patient's care. NYA TA MD DR: SANDY/luna JOB#: [id number] / [id number] SUSANNE Juan MD
--- NOTE | 2016-07-24 11:15 | PATHOLOGY ---
PATHOLOGY REPORT * * * * * * * * FINAL DIAGNOSIS: Gastric biopsy, gastric polyp: - Consistent with hyperplastic polyp, with mild chronic inflammation. COMMENT: Sections of the gastric biopsy reveal segments of gastric antral mucosa showing superficial congestion, foveolar hyperplasia, and mild chronic inflammation. The findings are consistent with a hyperplastic polyp. There are no adenomatous changes or evidence of malignancy. (JPM:mml; d/t: 07/24/2016) REPORT ELECTRONICALLY SIGNED BY: Niles Ba M.D. DATE/TIME: 07/24/2016 11:15 * * * * * * * * GROSS PATHOLOGY: Received in formalin labeled "Melodie Ponce, gastric polyp," are two segments of wallace soft tissue, each measuring 0.3 cm in maximum dimension. The specimen is submitted entirely in cassette A1. (JPM; 07/23/16) INITIAL CPT CODE(S): A; 59430 Professional services performed [place] [address] Technical services performed by [facility] at [address] [place] [address]. SPECIMEN(S) RECEIVED: A.Gastric polyp CLINICAL HISTORY: N/V PATIENT: MELODIE PONCE /AGE: 3 1955 (Age: 61) PATIENT #: [id number] ALT CASE #: SPECIMEN COLLECTION DATE: 07/22/2016 SPECIMEN RECEIVED DATE: 07/23/2016 [facility] - [address] [place] [address] - PHONE: [phone] * * * END OF REPORT * * *
== END | disposition home or self-care (01) ==
LOC: ENDOS 15:19
PROVIDERS: ATTEND Internal Medicine Gastroenterology
DX: K31.7 Polyp of stomach and duodenum (principal); K29.50 Unspecified chronic gastritis without bleeding; K21.9 Gastro-esophageal reflux disease without esophagitis; E78.00 Pure hypercholesterolemia, unspecified; I10 Essential (primary) hypertension; I48.91 Unspecified atrial fibrillation; E66.9 Obesity, unspecified; Z90.49 Acquired absence of other specified parts of digestive tract; Z87.442 Personal history of urinary calculi; Z83.3 Family history of diabetes mellitus; Z82.49 Family history of ischemic heart disease and other diseases of the circulatory system; Z88.6 Allergy status to analgesic agent; Z88.5 Allergy status to narcotic agent; Z88.8 Allergy status to other drugs, medicaments and biological substances
CPT/HCPCS: 43239; J2704; 88305

== ENCOUNTER 2016-07-24 16:30 | Inpatient (IN) | payer MEDICARE, OTHER ==
[~2016-07-24] VITALS: Ht 170.2 cm; Wt 104.9 kg
[~2016-07-24 16:30] MED LIST changes: -IV RINGERS,LACTATED 1000ML 1,000 ML IV SCH; -LIDOCAINE 1% 1 ML SYRINGE. ID PRN; -LIDOCAINE 2% PF Vial for OR 5 ML VIAL. ONE; -ONDANSETRON PF 4 MG/2 ML VIAL. IV PRN; -PROCHLORPERAZINE 10 MG/2 ML VIAL. IV PRN; -PROPOFOL 20 ML IV ONE
[2016-07-24] MEDS ORDERED: traMADol 50 MG TABLET PO PRN (18:45)
[2016-07-24] MEDS: PANTOPRAZOLE IV PUSH 40 MG VIAL. IVP SCH (19:00)
[2016-07-24 19:15] VITALS: BP 116/62
[2016-07-24 20:15] LABS: BASO # 0.1 x10^3/uL (0.0-0.2); BASO % 2 % (0-3); EOS % 2 % (0-3); HEMATOCRIT 35.3 % (36.0-47.0); HEMOGLOBIN 11.6 g/dL (12.0-15.5); LYMPH # 1.2 x10^3/uL (1.0-4.8); LYMPH % 21 % (24-48); MEAN CORPUSCULAR HEMOGLOBIN 33 pg (25-35); MEAN CORPUSCULAR HGB CONC 33 g/dL (31-37); MEAN CORPUSCULAR VOLUME 100 fL (79-100); MONO % 12 % (0-9); NEUT % 63 % (31-73); PLATELET COUNT 153 x10^3/uL (140-400); RED BLOOD COUNT 3.54 x10^6/uL (3.50-5.40); RED CELL DISTRIBUTION WIDTH 16.3 % (11.5-14.5); WHITE BLOOD COUNT 5.5 x10^3/uL (4.0-11.0)
[2016-07-24 20:23] LABS: INR 3.3 (0.8-1.1); PROTHROMBIN TIME PATIENT 31.5 SEC (11.7-14.0)
[2016-07-24 20:36] LABS: ANION GAP 3 (6-14); BLOOD UREA NITROGEN 24 mg/dL (7-20); CALCIUM 8.8 mg/dL (8.5-10.1); CARBON DIOXIDE 35 mmol/L (21-32); CHLORIDE 108 mmol/L (98-107); CREATININE 1.2 mg/dL (0.6-1.0); GFR 55.3; GLUCOSE 95 mg/dL (70-99); POTASSIUM 3.9 mmol/L (3.5-5.1); SODIUM 146 mmol/L (136-145)
[2016-07-24] MEDS: METOPROLOL TART IMMED RELEASE 50 MG TABLET. PO SCH (21:20)
[2016-07-24 23:31] VITALS: BP 101/41
[2016-07-25] VITALS (18 sets, daily range): BP systolic 95–124; BP diastolic 41–61
[2016-07-25] MEDS: LOSARTAN POTASSIUM 25 MG TABLET. PO SCH (08:08)
[2016-07-25] MEDS: DIGOXIN 125 MCG TABLET. PO SCH (08:08)
[2016-07-25] MEDS: AMIODARONE HCL 200 MG TABLET. PO SCH (08:08)
[2016-07-25] MEDS: METOPROLOL TART IMMED RELEASE 50 MG TABLET. PO SCH ×2 (08:08→21:15)
[2016-07-25] MEDS: PANTOPRAZOLE IV PUSH 40 MG VIAL. IVP SCH (08:12)
[2016-07-25] MEDS: diphenhydrAMINE 50 MG/ML VIAL IVP PRN (09:21)
[2016-07-25 09:30] LABS: BASO % 1 % (0-3); EOS % 3 % (0-3); HEMATOCRIT 31.1 % (36.0-47.0); HEMOGLOBIN 10.3 g/dL (12.0-15.5); LYMPH # 0.8 x10^3/uL (1.0-4.8); LYMPH % 19 % (24-48); MEAN CORPUSCULAR HEMOGLOBIN 33 pg (25-35); MEAN CORPUSCULAR HGB CONC 33 g/dL (31-37); MEAN CORPUSCULAR VOLUME 100 fL (79-100); MONO % 14 % (0-9); NEUT % 63 % (31-73); PLATELET COUNT 124 x10^3/uL (140-400); RED BLOOD COUNT 3.11 x10^6/uL (3.50-5.40); RED CELL DISTRIBUTION WIDTH 16.3 % (11.5-14.5)
[2016-07-25 09:58] LABS: INR 2.5 (0.8-1.1); PROTHROMBIN TIME PATIENT 25.2 SEC (11.7-14.0)
--- NOTE | 2016-07-25 10:01 | PDOC2 ---
GI CONSULT Reason For Consult: GI Bleed HPI: HPI: 61 y/o AA female, underwent EGD w/ Dr. Lo on 07/22/16 for n/v which showed normal esophagus, chronic gastritis, gastric polyp, and normal duodenum. After the procedure, she went home, drank some apple juice, and had a large stool which "might have had blood in it." Follow-up w/ PCP, Dr. Whitfield yesterday, reports hemoccult was positive in the office, admission recommended. H/o MVR on Warfarin and ASA, apparently INR difficult to control lately. She had another stool this morning and is unsure if it was bloody. In 02/2016, Hgb was 14.2. Currently, Hgb 11.6 (now 10.3), elevated RDW, INR 3.3 , BUN 24, Cr 1.2. On Nexium QD at home, no NSAIDs. Reports normal colonoscopy 2 years ago. 30 pound weight loss 2/2 dietary changes. Receiving FFP. PMH: PMH: A Fib, CHF, HTN, HLD, mitral valve replacement, AICD, JODY, OA, CKD, cholecystectomy, umbilical hernia repair, , tonsillectomy, "fibroid tumors" FH: Family History: No pertinent hx Social History: Smoke: No ALCOHOL: none Drugs: None ROS: GEN: Denies fevers, chills, sweats HEENT: Denies blurred vision, sore throat CV: Denies chest pain RESP: Denies shortness of air, cough GI: Per HPI : Denies hematuria, dysuria ENDO: +weight loss NEURO: Denies confusion, dizziness MSK: Denies weakness, joint pain/swelling SKIN: Denies jaundice, pruritus Vitals: Vitals: Vital Signs Date Time Temp Pulse Resp B/P (MAP) Pulse Ox O2 Delivery O2 Flow Rate FiO2 07/25/16 08:15 97.3 59 16 120/51 97.3 07/25/16 07:23 Room Air 07/25/16 07:00 99 Labs: Labs: Laboratory Tests Test 07/24/16 20:00 07/25/16 08:55 White Blood Count 5.5 x10^3/uL (4.0-11.0) 4.0 x10^3/uL (4.0-11.0) Red Blood Count 3.54 x10^6/uL (3.50-5.40) 3.11 x10^6/uL (3.50-5.40) Hemoglobin 11.6 g/dL (12.0-15.5) 10.3 g/dL (12.0-15.5) Hematocrit 35.3 % (36.0-47.0) 31.1 % (36.0-47.0) Mean Corpuscular Volume 100 fL (79-100) 100 fL (79-100) Mean Corpuscular Hemoglobin 33 pg (25-35) 33 pg (25-35) Mean Corpuscular Hemoglobin Concent 33 g/dL (31-37) 33 g/dL (31-37) Red Cell Distribution Width 16.3 % (11.5-14.5) 16.3 % (11.5-14.5) Platelet Count 153 x10^3/uL (140-400) 124 x10^3/uL (140-400) Neutrophils (%) (Auto) 63 % (31-73) 63 % (31-73) Lymphocytes (%) (Auto) 21 % (24-48) 19 % (24-48) Monocytes (%) (Auto) 12 % (0-9) 14 % (0-9) Eosinophils (%) (Auto) 2 % (0-3) 3 % (0-3) Basophils (%) (Auto) 2 % (0-3) 1 % (0-3) Neutrophils # (Auto) 3.5 x10^3uL (1.8-7.7) 2.5 x10^3uL (1.8-7.7) Lymphocytes # (Auto) 1.2 x10^3/uL (1.0-4.8) 0.8 x10^3/uL (1.0-4.8) Monocytes # (Auto) 0.7 x10^3/uL (0.0-1.1) 0.5 x10^3/uL (0.0-1.1) Eosinophils # (Auto) 0.1 x10^3/uL (0.0-0.7) 0.1 x10^3/uL (0.0-0.7) Basophils # (Auto) 0.1 x10^3/uL (0.0-0.2) 0.0 x10^3/uL (0.0-0.2) Prothrombin Time 31.5 SEC (11.7-14.0) Prothromb Time International Ratio 3.3 (0.8-1.1) Sodium Level 146 mmol/L (136-145) Potassium Level 3.9 mmol/L (3.5-5.1) Chloride Level 108 mmol/L (98-107) Carbon Dioxide Level 35 mmol/L (21-32) Anion Gap 3 (6-14) Blood Urea Nitrogen 24 mg/dL (7-20) Creatinine 1.2 mg/dL (0.6-1.0) Estimated GFR (Cockcroft-Gault) 55.3 Glucose Level 95 mg/dL (70-99) Calcium Level 8.8 mg/dL (8.5-10.1) Digoxin Level 2.4 ng/mL (0.9-2.0) Digoxin Last Dose Date 07/24/16 Digoxin Last Dose Time 0800 Allergies: Coded Allergies: Glujyzr-Fmb-Ilb Reductase Inhibitor (Verified Allergy, Intermediate, ) atorvastatin (Verified Allergy, Intermediate, MUSCLE PAIN, 07/22/16) codeine (Verified Allergy, Intermediate, Hives, 07/22/16) diltiazem HCl (Verified Allergy, Intermediate, 07/22/16) ezetimibe (Verified Allergy, Intermediate, 07/22/16) lovastatin (Verified Allergy, Intermediate, 07/22/16) meperidine (Verified Allergy, Intermediate, Hives, 07/22/16) pravastatin (Verified Allergy, Intermediate, 07/22/16) rosuvastatin calcium (Verified Allergy, Intermediate, Anxiety, 07/22/16) simvastatin (Verified Allergy, Intermediate, 07/22/16) Medications: Current Medications Medications (Trade) Dose Ordered Sig/Nilson Route PRN Reason Start Time Stop Time Status Last Admin Dose Admin Pantoprazole Sodium (Protonix Vial) 40 mg DAILYAC IVP 07/24/16 19:00 07/25/16 08:12 Metoprolol Tartrate (Lopressor) 100 mg BID PO 07/24/16 21:00 07/24/16 21:20 Diphenhydramine HCl (Benadryl) 25 mg PRN Q4HRS PRN IVP ITCHING 07/25/16 09:15 07/25/16 09:21 Imaging: Imaging: - PE: GEN: NAD HEENT: Atraumatic, PERRL LUNGS: clear anteriorly HEART: irregular, loud murm ABD: NABS, S/ND/NT EXTREMITY: No edema SKIN: No rashes, no jaundice NEURO/PSYCH: A & O 3 A/P: A/P: N/v, weight loss, decreased appetite -EGD this week w/ gastritis, gastric polyp -on PPI Hemoccult positive stool, anemia, ?bloody stools A Fib, h/o MVR on Warfarin, ASA -INR 3.3 CRC screen -reports normal colonoscopy 2 years ago -- Medical therapy w/ elevated INR. Continue PPI. Re: n/v, consider CT or GES. GLENN HATCH Jul 25, 2016 10:01
[2016-07-25 10:04] LABS: CALCIUM 8.8 mg/dL (8.5-10.1); CREATININE 1.1 mg/dL (0.6-1.0); GFR 61.1; POTASSIUM 3.3 mmol/L (3.5-5.1)
[2016-07-25] MEDS ORDERED: IOHEXOL 300 MG/ML 75 ML VIAL IV ONE (12:45)
[2016-07-25] MEDS ORDERED: CONTRAST GIVEN MC PRN (12:45)
[2016-07-25] MEDS ORDERED: IOHEXOL 240 MG/ML 50ML VIAL. PO ONE (12:45)
[2016-07-25] MEDS: POTASSIUM CHLORIDE 20 MEQ TABLET.ER. PO ONE ×2 (13:47→15:31)
--- NOTE | 2016-07-25 14:32 | RAD ---
Chest, 2 views, 07/25/2016: History: Atrial fibrillation, congestive heart failure Comparison is made to a study from 02/18/2016. The heart is enlarged. A cardiac valvular prosthesis remains in place. A left-sided transvenous pacemaker is in place with 3 leads extending into the heart. There is calcific plaquing of the aorta. The pulmonary vascularity remains at the upper limits of normal. There is slight basilar interstitial prominence. No pulmonary consolidation is seen. There is no evidence of pleural fluid. IMPRESSION: 1. Cardiomegaly with borderline vascular congestion. 2. No significant change since 02/18/2016.
--- NOTE | 2016-07-25 15:13 | PDOC ---
OBJECTIVE Vital Signs Vital Signs Date Time Temp Pulse Resp B/P (MAP) Pulse Ox O2 Delivery O2 Flow Rate FiO2 07/25/16 11:00 97.5 50 18 123/56 (78) 100 Room Air 97.5 07/25/16 09:15 97.5 61 16 124/54 (77) Room Air 97.5 07/25/16 08:15 97.3 59 16 120/51 97.3 07/25/16 07:45 97.3 78 16 118/59 97.3 07/25/16 07:23 Room Air 07/25/16 07:00 97.9 60 118/59 (78) 99 Room Air 97.9 07/25/16 06:45 59 18 116/53 07/25/16 06:30 98.2 59 18 108/51 98.2 07/25/16 06:10 98.0 61 16 108/54 98.0 07/25/16 05:56 97.8 59 17 116/57 97.8 07/25/16 05:41 97.7 59 15 109/49 97.7 07/25/16 04:07 97.9 59 16 105/50 97.9 07/25/16 03:55 98.6 59 95/41 (59) Room Air 98.6 07/25/16 03:52 98.1 60 17 97/55 98.1 07/25/16 03:35 97.7 60 18 95/45 97.7 07/25/16 03:15 98.6 59 17 95/41 98.6 07/24/16 23:31 97.7 56 16 101/41 (61) 100 Room Air 97.7 07/24/16 21:20 62 116/62 07/24/16 19:15 98.4 62 16 116/62 (80) 100 Room Air 98.4 I & O Intake and Output 07/25/16 07:00 Intake Total 1210 ml Balance 1210 ml Intake Oral 850 ml Blood Product IV Normal Saline Flush 360 ml # Voids 3 ASSESSMENT/PLAN Assessment/Plan [id number] H&P dictated Problems: COMMENT Lab Laboratory Tests Test 07/24/16 20:00 07/25/16 08:55 White Blood Count 5.5 x10^3/uL (4.0-11.0) 4.0 x10^3/uL (4.0-11.0) Red Blood Count 3.54 x10^6/uL (3.50-5.40) 3.11 x10^6/uL (3.50-5.40) Hemoglobin 11.6 g/dL (12.0-15.5) 10.3 g/dL (12.0-15.5) Hematocrit 35.3 % (36.0-47.0) 31.1 % (36.0-47.0) Mean Corpuscular Volume 100 fL (79-100) 100 fL (79-100) Mean Corpuscular Hemoglobin 33 pg (25-35) 33 pg (25-35) Mean Corpuscular Hemoglobin Concent 33 g/dL (31-37) 33 g/dL (31-37) Red Cell Distribution Width 16.3 % (11.5-14.5) 16.3 % (11.5-14.5) Platelet Count 153 x10^3/uL (140-400) 124 x10^3/uL (140-400) Neutrophils (%) (Auto) 63 % (31-73) 63 % (31-73) Lymphocytes (%) (Auto) 21 % (24-48) 19 % (24-48) Monocytes (%) (Auto) 12 % (0-9) 14 % (0-9) Eosinophils (%) (Auto) 2 % (0-3) 3 % (0-3) Basophils (%) (Auto) 2 % (0-3) 1 % (0-3) Neutrophils # (Auto) 3.5 x10^3uL (1.8-7.7) 2.5 x10^3uL (1.8-7.7) Lymphocytes # (Auto) 1.2 x10^3/uL (1.0-4.8) 0.8 x10^3/uL (1.0-4.8) Monocytes # (Auto) 0.7 x10^3/uL (0.0-1.1) 0.5 x10^3/uL (0.0-1.1) Eosinophils # (Auto) 0.1 x10^3/uL (0.0-0.7) 0.1 x10^3/uL (0.0-0.7) Basophils # (Auto) 0.1 x10^3/uL (0.0-0.2) 0.0 x10^3/uL (0.0-0.2) Prothrombin Time 31.5 SEC (11.7-14.0) 25.2 SEC (11.7-14.0) Prothromb Time International Ratio 3.3 (0.8-1.1) 2.5 (0.8-1.1) Sodium Level 146 mmol/L (136-145) 145 mmol/L (136-145) Potassium Level 3.9 mmol/L (3.5-5.1) 3.3 mmol/L (3.5-5.1) Chloride Level 108 mmol/L (98-107) 106 mmol/L (98-107) Carbon Dioxide Level 35 mmol/L (21-32) 33 mmol/L (21-32) Anion Gap 3 (6-14) 6 (6-14) Blood Urea Nitrogen 24 mg/dL (7-20) 17 mg/dL (7-20) Creatinine 1.2 mg/dL (0.6-1.0) 1.1 mg/dL (0.6-1.0) Estimated GFR (Cockcroft-Gault) 55.3 61.1 Glucose Level 95 mg/dL (70-99) 98 mg/dL (70-99) Calcium Level 8.8 mg/dL (8.5-10.1) 8.8 mg/dL (8.5-10.1) Digoxin Level 2.4 ng/mL (0.9-2.0) Digoxin Last Dose Date 07/24/16 Digoxin Last Dose Time 0800 SUSANNE APTIÑO MD Jul 25, 2016 15:13
--- NOTE | 2016-07-25 15:16 | RAD ---
CT scan of the abdomen and pelvis with oral contrast only 07/25/2016 Clinical history: Nausea, vomiting and abdominal pain. Technique: After the oral administration of contrast only, contiguous, 5 mm axial sections were obtained through the abdomen and pelvis. One or more of the following individualized dose reduction techniques were utilized for this study: 1. Automated exposure control. 2. Adjustment of the mA and/or kV according to patient size. 3. Use of iterative reconstruction technique. Findings: Comparison study is dated 07/21/2007. Images through the lung bases demonstrate moderate to severe cardiomegaly. The patient is status post mitral valve placement. Pacemaker leads are again noted in place. The liver, spleen, pancreas, adrenal glands and kidneys are within normal limits. Mild atherosclerotic calcification of the abdominal aorta is seen. The abdominal aorta tapers normally. Surgical clips are seen within the gallbladder fossa consistent with a cholecystectomy. There is no evidence of bowel obstruction. The appendix is well visualized and is within normal limits. Images through the pelvis demonstrate the uterus to be enlarged with multiple rounded masses consistent with fibroids. These measure 5 mm to 4.5 cm in size. A 3 cm oval-shaped fat-containing lesion is seen within the mesentery near the sigmoid colon. This is consistent with a lipoma. A small amount of free fluid is seen within the pelvis which is not significantly changed. Scattered diverticula are seen involving the descending and sigmoid colon. No inflammatory changes are seen in the adjacent fat. Minimal S shaped curvature of the thoracolumbar spine is seen. Degenerative changes are seen involving the lower thoracic and mid and lower lumbar spine and both hips. Impression: 1. Moderate to severe cardiomegaly. 2. Small amount of free fluid is seen within the pelvis, unchanged. 3. Enlarged fibroid uterus. 4. No acute abnormality is seen.
[2016-07-25] MEDS: POTASSIUM CHLORIDE 30 MEQ in IV 1/2 NORMAL SALINE 1,000 ML IV SCH (15:31)
[2016-07-25 17:28] LABS: NEG OBC FOB NEG; POS OBC FOB POS
[2016-07-26 03:20] VITALS: BP 109/53
[2016-07-26 07:00] VITALS: BP 110/59
[2016-07-26] MEDS: POTASSIUM CHLORIDE 30 MEQ in IV 1/2 NORMAL SALINE 1,000 ML IV SCH ×3 (08:32→21:37)
[2016-07-26] MEDS: LOSARTAN POTASSIUM 25 MG TABLET. PO SCH (08:33)
[2016-07-26] MEDS: PANTOPRAZOLE IV PUSH 40 MG VIAL. IVP SCH (08:33)
[2016-07-26] MEDS: AMIODARONE HCL 200 MG TABLET. PO SCH (08:33)
[2016-07-26] MEDS: METOPROLOL TART IMMED RELEASE 50 MG TABLET. PO SCH ×2 (08:34→20:47)
[2016-07-26 09:49] LABS: CALCIUM 8.5 mg/dL (8.5-10.1); CREATININE 1.2 mg/dL (0.6-1.0); GFR 55.3; POTASSIUM 3.5 mmol/L (3.5-5.1)
[2016-07-26 09:58] LABS: HEMATOCRIT 32.1 % (36.0-47.0); HEMOGLOBIN 10.5 g/dL (12.0-15.5); RED BLOOD COUNT 3.19 x10^6/uL (3.50-5.40); RED CELL DISTRIBUTION WIDTH 17.1 % (11.5-14.5); WHITE BLOOD COUNT 4.2 x10^3/uL (4.0-11.0)
[2016-07-26 10:04] LABS: INR 2.6 (0.8-1.1); PROTHROMBIN TIME PATIENT 26.2 SEC (11.7-14.0)
--- NOTE | 2016-07-26 10:32 | PDOC ---
G I PROGRESS NOTE Subjective Still describes dark, maybe melanotic, stool. No pain, etc. Physical Exam Lungs clear. RRR Abdomen soft, not distended. Mild epigastric tenderness. Review of Relevant I have reviewed the following items araceli (where applicable) has been applied. Labs Laboratory Tests Test 07/24/16 20:00 07/25/16 08:55 07/25/16 14:50 07/26/16 09:10 White Blood Count 5.5 x10^3/uL (4.0-11.0) 4.0 x10^3/uL (4.0-11.0) 4.2 x10^3/uL (4.0-11.0) Red Blood Count 3.54 x10^6/uL (3.50-5.40) 3.11 x10^6/uL (3.50-5.40) 3.19 x10^6/uL (3.50-5.40) Hemoglobin 11.6 g/dL (12.0-15.5) 10.3 g/dL (12.0-15.5) 10.5 g/dL (12.0-15.5) Hematocrit 35.3 % (36.0-47.0) 31.1 % (36.0-47.0) 32.1 % (36.0-47.0) Mean Corpuscular Volume 100 fL (79-100) 100 fL (79-100) 100 fL (79-100) Mean Corpuscular Hemoglobin 33 pg (25-35) 33 pg (25-35) 33 pg (25-35) Mean Corpuscular Hemoglobin Concent 33 g/dL (31-37) 33 g/dL (31-37) 33 g/dL (31-37) Red Cell Distribution Width 16.3 % (11.5-14.5) 16.3 % (11.5-14.5) 17.1 % (11.5-14.5) Platelet Count 153 x10^3/uL (140-400) 124 x10^3/uL (140-400) 133 x10^3/uL (140-400) Neutrophils (%) (Auto) 63 % (31-73) 63 % (31-73) Lymphocytes (%) (Auto) 21 % (24-48) 19 % (24-48) Monocytes (%) (Auto) 12 % (0-9) 14 % (0-9) Eosinophils (%) (Auto) 2 % (0-3) 3 % (0-3) Basophils (%) (Auto) 2 % (0-3) 1 % (0-3) Neutrophils # (Auto) 3.5 x10^3uL (1.8-7.7) 2.5 x10^3uL (1.8-7.7) Lymphocytes # (Auto) 1.2 x10^3/uL (1.0-4.8) 0.8 x10^3/uL (1.0-4.8) Monocytes # (Auto) 0.7 x10^3/uL (0.0-1.1) 0.5 x10^3/uL (0.0-1.1) Eosinophils # (Auto) 0.1 x10^3/uL (0.0-0.7) 0.1 x10^3/uL (0.0-0.7) Basophils # (Auto) 0.1 x10^3/uL (0.0-0.2) 0.0 x10^3/uL (0.0-0.2) Prothrombin Time 31.5 SEC (11.7-14.0) 25.2 SEC (11.7-14.0) 26.2 SEC (11.7-14.0) Prothromb Time International Ratio 3.3 (0.8-1.1) 2.5 (0.8-1.1) 2.6 (0.8-1.1) Sodium Level 146 mmol/L (136-145) 145 mmol/L (136-145) 141 mmol/L (136-145) Potassium Level 3.9 mmol/L (3.5-5.1) 3.3 mmol/L (3.5-5.1) 3.5 mmol/L (3.5-5.1) Chloride Level 108 mmol/L (98-107) 106 mmol/L (98-107) 104 mmol/L (98-107) Carbon Dioxide Level 35 mmol/L (21-32) 33 mmol/L (21-32) 28 mmol/L (21-32) Anion Gap 3 (6-14) 6 (6-14) 9 (6-14) Blood Urea Nitrogen 24 mg/dL (7-20) 17 mg/dL (7-20) 12 mg/dL (7-20) Creatinine 1.2 mg/dL (0.6-1.0) 1.1 mg/dL (0.6-1.0) 1.2 mg/dL (0.6-1.0) Estimated GFR (Cockcroft-Gault) 55.3 61.1 55.3 Glucose Level 95 mg/dL (70-99) 98 mg/dL (70-99) 126 mg/dL (70-99) Calcium Level 8.8 mg/dL (8.5-10.1) 8.8 mg/dL (8.5-10.1) 8.5 mg/dL (8.5-10.1) Digoxin Level 2.4 ng/mL (0.9-2.0) Digoxin Last Dose Date 07/24/16 Digoxin Last Dose Time 0800 Stool Occult Blood Positive (NEG) Laboratory Tests Test 07/25/16 14:50 07/26/16 09:10 Stool Occult Blood Positive (NEG) White Blood Count 4.2 x10^3/uL (4.0-11.0) Red Blood Count 3.19 x10^6/uL (3.50-5.40) Hemoglobin 10.5 g/dL (12.0-15.5) Hematocrit 32.1 % (36.0-47.0) Mean Corpuscular Volume 100 fL (79-100) Mean Corpuscular Hemoglobin 33 pg (25-35) Mean Corpuscular Hemoglobin Concent 33 g/dL (31-37) Red Cell Distribution Width 17.1 % (11.5-14.5) Platelet Count 133 x10^3/uL (140-400) Prothrombin Time 26.2 SEC (11.7-14.0) Prothromb Time International Ratio 2.6 (0.8-1.1) Sodium Level 141 mmol/L (136-145) Potassium Level 3.5 mmol/L (3.5-5.1) Chloride Level 104 mmol/L (98-107) Carbon Dioxide Level 28 mmol/L (21-32) Anion Gap 9 (6-14) Blood Urea Nitrogen 12 mg/dL (7-20) Creatinine 1.2 mg/dL (0.6-1.0) Estimated GFR (Cockcroft-Gault) 55.3 Glucose Level 126 mg/dL (70-99) Calcium Level 8.5 mg/dL (8.5-10.1) Hemoglobin stable. INR slowly drifting into therapeutic range. Informed of heme positive stool. Medications Current Medications Pantoprazole Sodium (Protonix Vial) 40 mg DAILYAC IVP Last administered on 07/26 08:33; Start 07/24/16 at 19:00 Tramadol HCl (Ultram) 50 mg PRN Q8HRS PRN PO PAIN; Start 07/24/16 at 18:45 Digoxin (Lanoxin) 125 mcg DAILY PO ; Start 07/25/16 at 09:00; Status Future hold Metoprolol Tartrate (Lopressor) 100 mg BID PO Last administered on 07/26/16 08 :34; Start 07/24/16 at 21:00 Amiodarone HCl (Cordarone) 200 mg DAILY PO Last administered on 07/26/16 08:33 ; Start 07/25/16 at 09:00 Losartan Potassium (Cozaar) 25 mg DAILY PO Last administered on 07/26/16 08:33 ; Start 07/25/16 at 09:00 Diphenhydramine HCl (Benadryl) 25 mg PRN Q4HRS PRN IVP ITCHING Last administered on 07/25/16 09:21; Start 07/25/16 at 09:15 Iohexol (Omnipaque 240 Mg/ml) 30 ml 1X ONCE PO ; Start 07/25/16 at 12:45; Stop 07/25/16 at 12:46; Status DC Iohexol (Omnipaque 300 Mg/ml) 75 ml 1X ONCE IV ; Start 07/25/16 at 12:45; Stop 07/25/16 at 12:46; Status DC Info (Do NOT chart on this entry -- for MONITORING) 1 each PRN DAILY PRN MC SEE COMMENTS; Start 07/25/16 at 12:45; Stop 07/27/16 at 12:44 Potassium Chloride (Klor-Con) 20 meq 1X ONCE PO Last administered on 15:31; Start 07/25/16 at 14:00; Stop 07/25/16 at 14:01; Status DC Potassium Chloride 30 meq/ Sodium Chloride 1,015 ml @ 75 mls/hr [id number] IV Last administered on 07/26/16t 08:32; Start 07/25/16 at 14:00 Active Scripts Active Klor-Con M20 (Potassium Chloride) 20 Meq Tab.er.prt 10 Meq PO [id number] 60 Days Hydroxyzine Pamoate 25 Mg Capsule 25 Mg PO PRN Q6HRS PRN 30 Days Lanoxin (Digoxin) 125 Mcg Tablet 125 Mcg PO DAILY 30 Days Amiodarone Hcl 200 Mg Tablet 200 Mg PO DAILY 30 Days Metoprolol Tartrate 100 Mg Tablet 1 Tab PO BID Reported Warfarin Sodium 3 Mg Tablet 1 Tab PO DAILY Flonase (Fluticasone Propionate) 16 Gm [place].susp 1 [place] NS DAILY Spironolactone 25 Mg Tablet 25 Mg PO DAILY Losartan Potassium 25 Mg Tablet 25 Mg PO HS Torsemide 20 Mg Tablet 20 Mg PO DAILY08 Desonide 15 Gm Oint...g. 15 Gm TP BID Benadryl Allergy (Diphenhydramine Hcl) 25 Mg Tablet 25 Mg PO PRN Acetaminophen 500 Mg Tablet 1,000 Mg PO Q6HRS PRN Nexium Capsule (Esomeprazole Magnesium) 40 Mg Capsule.dr 40 Mg PO PRN Calcium 500+D Tablet Chew (Calcium Carbonate/Vitamin D3) 1 Each Tab.chew 1 Each PO DAILY Aspirin 81 Mg Tab.chew 81 Mg PO DAILY Vitals/I & O Vital Sign - Last 24 Hours 07/25/16 07/25/16 07/25/16 07/25/16 11:00 15:00 19:20 20:00 Temp 97.5 97.8 98.3 97.5 97.8 98.3 Pulse 50 60 60 Resp 18 18 18 B/P (MAP) 123/56 (78) 103/61 (75) 113/55 (74) Pulse Ox 100 98 100 O2 Delivery Room Air Room Air Room Air Room Air 07/25/16 07/25/16 07/26/16 07/26/16 21:15 23:20 03:20 07:00 Temp 98.5 98.4 98.2 98.5 98.4 98.2 Pulse 60 59 60 59 Resp 18 18 16 B/P (MAP) 113/55 110/58 (75) 109/53 (71) 110/59 (76) Pulse Ox 99 98 97 O2 Delivery Room Air Room Air Room Air 07/26/16 07/26/16 07/26/16 08:33 08:33 08:34 Pulse 59 59 59 B/P (MAP) 110/59 110/59 110/59 Intake and Output 07/25/16 07/25/16 07/26/16 14:59 22:59 06:59 Intake Total 316 ml 250 ml 1150 ml Output Total 350 ml Balance 316 ml -100 ml 1150 ml Assessment Acute blood loss anemia--from biopsy? Unusual, but can occur and she's on anticoags. Plan of Care: Continue current Tx, Mgmt Plan of Care Note If hemoglobin remains stable, consider diet. CANDY LU MD Jul 26, 2016 10:32
[2016-07-26 11:00] VITALS: BP 104/54
[2016-07-26] MEDS: diphenhydrAMINE 50 MG/ML VIAL IVP PRN (12:47)
--- NOTE | 2016-07-26 13:47 | PDOC ---
SUBJECTIVE Subjective feels better, still had 2 black stools today but Hb stable OBJECTIVE Vital Signs Vital Signs Date Time Temp Pulse Resp B/P (MAP) Pulse Ox O2 Delivery O2 Flow Rate FiO2 07/26/16 11:00 98.5 61 16 104/54 (71) 100 Room Air 98.5 07/26/16 08:34 59 110/59 07/26/16 08:33 59 110/59 07/26/16 08:33 59 110/59 07/26/16 08:00 Room Air 07/26/16 07:00 98.2 59 16 110/59 (76) 97 Room Air 98.2 07/26/16 03:20 98.4 60 18 109/53 (71) 98 Room Air 98.4 07/25/16 23:20 98.5 59 18 110/58 (75) 99 Room Air 98.5 07/25/16 21:15 60 113/55 07/25/16 20:00 Room Air 07/25/16 19:20 98.3 60 18 113/55 (74) 100 Room Air 98.3 07/25/16 15:00 97.8 60 18 103/61 (75) 98 Room Air 97.8 I & O Intake and Output 07/26/16 07:00 Intake Total 1716 ml Output Total 350 ml Balance 1366 ml Intake Oral 1400 ml Blood Product IV Normal Saline Flush 316 ml Output Urine Total 350 ml # Voids 3 # Bowel Movements 1 PHYSICAL EXAM Physical Exam no change in exam ASSESSMENT/PLAN Assessment/Plan still with black stool but HB stable will advance diet , continue to hold coumadin and monitor HB Problems: COMMENT Lab Laboratory Tests Test 07/25/16 14:50 07/26/16 09:10 Stool Occult Blood Positive (NEG) White Blood Count 4.2 x10^3/uL (4.0-11.0) Red Blood Count 3.19 x10^6/uL (3.50-5.40) Hemoglobin 10.5 g/dL (12.0-15.5) Hematocrit 32.1 % (36.0-47.0) Mean Corpuscular Volume 100 fL (79-100) Mean Corpuscular Hemoglobin 33 pg (25-35) Mean Corpuscular Hemoglobin Concent 33 g/dL (31-37) Red Cell Distribution Width 17.1 % (11.5-14.5) Platelet Count 133 x10^3/uL (140-400) Prothrombin Time 26.2 SEC (11.7-14.0) Prothromb Time International Ratio 2.6 (0.8-1.1) Sodium Level 141 mmol/L (136-145) Potassium Level 3.5 mmol/L (3.5-5.1) Chloride Level 104 mmol/L (98-107) Carbon Dioxide Level 28 mmol/L (21-32) Anion Gap 9 (6-14) Blood Urea Nitrogen 12 mg/dL (7-20) Creatinine 1.2 mg/dL (0.6-1.0) Estimated GFR (Cockcroft-Gault) 55.3 Glucose Level 126 mg/dL (70-99) Calcium Level 8.5 mg/dL (8.5-10.1) SUSANNE PATIÑO MD Jul 26, 2016 13:47
[2016-07-26 14:58] VITALS: BP 107/62
[2016-07-26 19:57] VITALS: BP 115/64
[2016-07-26 23:53] VITALS: BP 109/65
[2016-07-27 07:00] VITALS: BP 104/55
--- NOTE | 2016-07-27 08:23 | PDOC ---
G I PROGRESS NOTE Subjective Still report dark stools. Some dyspepsia with solid food. Physical Exam Lungs clear. RRR Abdomen soft, mild epigastric tenderness. Review of Relevant I have reviewed the following items araceli (where applicable) has been applied. Labs Laboratory Tests Test 07/25/16 08:55 07/25/16 14:50 07/26/16 09:10 White Blood Count 4.0 x10^3/uL (4.0-11.0) 4.2 x10^3/uL (4.0-11.0) Red Blood Count 3.11 x10^6/uL (3.50-5.40) 3.19 x10^6/uL (3.50-5.40) Hemoglobin 10.3 g/dL (12.0-15.5) 10.5 g/dL (12.0-15.5) Hematocrit 31.1 % (36.0-47.0) 32.1 % (36.0-47.0) Mean Corpuscular Volume 100 fL (79-100) 100 fL (79-100) Mean Corpuscular Hemoglobin 33 pg (25-35) 33 pg (25-35) Mean Corpuscular Hemoglobin Concent 33 g/dL (31-37) 33 g/dL (31-37) Red Cell Distribution Width 16.3 % (11.5-14.5) 17.1 % (11.5-14.5) Platelet Count 124 x10^3/uL (140-400) 133 x10^3/uL (140-400) Neutrophils (%) (Auto) 63 % (31-73) Lymphocytes (%) (Auto) 19 % (24-48) Monocytes (%) (Auto) 14 % (0-9) Eosinophils (%) (Auto) 3 % (0-3) Basophils (%) (Auto) 1 % (0-3) Neutrophils # (Auto) 2.5 x10^3uL (1.8-7.7) Lymphocytes # (Auto) 0.8 x10^3/uL (1.0-4.8) Monocytes # (Auto) 0.5 x10^3/uL (0.0-1.1) Eosinophils # (Auto) 0.1 x10^3/uL (0.0-0.7) Basophils # (Auto) 0.0 x10^3/uL (0.0-0.2) Prothrombin Time 25.2 SEC (11.7-14.0) 26.2 SEC (11.7-14.0) Prothromb Time International Ratio 2.5 (0.8-1.1) 2.6 (0.8-1.1) Sodium Level 145 mmol/L (136-145) 141 mmol/L (136-145) Potassium Level 3.3 mmol/L (3.5-5.1) 3.5 mmol/L (3.5-5.1) Chloride Level 106 mmol/L (98-107) 104 mmol/L (98-107) Carbon Dioxide Level 33 mmol/L (21-32) 28 mmol/L (21-32) Anion Gap 6 (6-14) 9 (6-14) Blood Urea Nitrogen 17 mg/dL (7-20) 12 mg/dL (7-20) Creatinine 1.1 mg/dL (0.6-1.0) 1.2 mg/dL (0.6-1.0) Estimated GFR (Cockcroft-Gault) 61.1 55.3 Glucose Level 98 mg/dL (70-99) 126 mg/dL (70-99) Calcium Level 8.8 mg/dL (8.5-10.1) 8.5 mg/dL (8.5-10.1) Stool Occult Blood Positive (NEG) Laboratory Tests Test 07/26/16 09:10 White Blood Count 4.2 x10^3/uL (4.0-11.0) Red Blood Count 3.19 x10^6/uL (3.50-5.40) Hemoglobin 10.5 g/dL (12.0-15.5) Hematocrit 32.1 % (36.0-47.0) Mean Corpuscular Volume 100 fL (79-100) Mean Corpuscular Hemoglobin 33 pg (25-35) Mean Corpuscular Hemoglobin Concent 33 g/dL (31-37) Red Cell Distribution Width 17.1 % (11.5-14.5) Platelet Count 133 x10^3/uL (140-400) Prothrombin Time 26.2 SEC (11.7-14.0) Prothromb Time International Ratio 2.6 (0.8-1.1) Sodium Level 141 mmol/L (136-145) Potassium Level 3.5 mmol/L (3.5-5.1) Chloride Level 104 mmol/L (98-107) Carbon Dioxide Level 28 mmol/L (21-32) Anion Gap 9 (6-14) Blood Urea Nitrogen 12 mg/dL (7-20) Creatinine 1.2 mg/dL (0.6-1.0) Estimated GFR (Cockcroft-Gault) 55.3 Glucose Level 126 mg/dL (70-99) Calcium Level 8.5 mg/dL (8.5-10.1) Medications Current Medications Pantoprazole Sodium (Protonix Vial) 40 mg DAILYAC IVP Last administered on 07/26 08:33; Start 07/24/16 at 19:00 Tramadol HCl (Ultram) 50 mg PRN Q8HRS PRN PO PAIN; Start 07/24/16 at 18:45 Digoxin (Lanoxin) 125 mcg DAILY PO ; Start 07/25/16 at 09:00; Status Future hold Metoprolol Tartrate (Lopressor) 100 mg BID PO Last administered on 07/26/16 20 :47; Start 07/24/16 at 21:00 Amiodarone HCl (Cordarone) 200 mg DAILY PO Last administered on 07/26/16 08:33 ; Start 07/25/16 at 09:00 Losartan Potassium (Cozaar) 25 mg DAILY PO Last administered on 07/26/16 08:33 ; Start 07/25/16 at 09:00 Diphenhydramine HCl (Benadryl) 25 mg PRN Q4HRS PRN IVP ITCHING Last administered on 07/26/16 12:47; Start 07/25/16 at 09:15 Iohexol (Omnipaque 240 Mg/ml) 30 ml 1X ONCE PO ; Start 07/25/16 at 12:45; Stop 07/25/16 at 12:46; Status DC Iohexol (Omnipaque 300 Mg/ml) 75 ml 1X ONCE IV ; Start 07/25/16 at 12:45; Stop 07/25/16 at 12:46; Status DC Info (Do NOT chart on this entry -- for MONITORING) 1 each PRN DAILY PRN MC SEE COMMENTS; Start 07/25/16 at 12:45; Stop 07/27/16 at 12:44 Potassium Chloride (Klor-Con) 20 meq 1X ONCE PO Last administered on t 15:31; Start 07/25/16 at 14:00; Stop 07/25/16 at 14:01; Status DC Potassium Chloride 30 meq/ Sodium Chloride 1,015 ml @ 75 mls/hr [id number] IV Last administered on 07/26/16t 21:37; Start 07/25/16 at 14:00 Active Scripts Active Klor-Con M20 (Potassium Chloride) 20 Meq Tab.er.prt 10 Meq PO DAILYWBKFT 60 Days Hydroxyzine Pamoate 25 Mg Capsule 25 Mg PO PRN Q6HRS PRN 30 Days Lanoxin (Digoxin) 125 Mcg Tablet 125 Mcg PO DAILY 30 Days Amiodarone Hcl 200 Mg Tablet 200 Mg PO DAILY 30 Days Metoprolol Tartrate 100 Mg Tablet 1 Tab PO BID Reported Warfarin Sodium 3 Mg Tablet 1 Tab PO DAILY Flonase (Fluticasone Propionate) 16 Gm [place].susp 1 [place] NS DAILY Spironolactone 25 Mg Tablet 25 Mg PO DAILY Losartan Potassium 25 Mg Tablet 25 Mg PO HS Torsemide 20 Mg Tablet 20 Mg PO DAILY08 Desonide 15 Gm Oint...g. 15 Gm TP BID Benadryl Allergy (Diphenhydramine Hcl) 25 Mg Tablet 25 Mg PO PRN Acetaminophen 500 Mg Tablet 1,000 Mg PO Q6HRS PRN Nexium Capsule (Esomeprazole Magnesium) 40 Mg Capsule.dr 40 Mg PO PRN Calcium 500+D Tablet Chew (Calcium Carbonate/Vitamin D3) 1 Each Tab.chew 1 Each PO DAILY Aspirin 81 Mg Tab.chew 81 Mg PO DAILY Vitals/I & O Vital Sign - Last 24 Hours 07/26/16 07/26/16 07/26/16 07/26/16 08:33 08:33 08:34 11:00 Temp 98.5 98.5 Pulse 59 59 59 61 Resp 16 B/P (MAP) 110/59 110/59 110/59 104/54 (71) Pulse Ox 100 O2 Delivery Room Air 07/26/16 07/26/16 07/26/16 07/26/16 14:58 19:57 20:00 20:47 Temp 98.3 97.7 98.3 97.7 Pulse 59 60 60 Resp 16 20 B/P (MAP) 107/62 (77) 115/64 (81) 115/64 Pulse Ox 98 99 O2 Delivery Room Air Room Air Room Air 07/26/16 07/27/16 23:53 03:00 Temp 98.0 98.0 Pulse 59 Resp 18 B/P (MAP) 109/65 (80) Pulse Ox 97 O2 Delivery Room Air Room Air Intake and Output 07/26/16 07/26/16 07/27/16 15:00 23:00 07:00 Intake Total 600 ml 210 ml Balance 600 ml 210 ml Assessment Melena after gastric biopsy; warfarin likely aggravated some bleeding from this. Dyspepsia c/w GERD. Plan of Care: Continue current Tx, Mgmt Plan of Care Note Po PPI. Home? CANDY LU MD Jul 27, 2016 08:23
[2016-07-27] MEDS: AMIODARONE HCL 200 MG TABLET. PO SCH (08:28)
[2016-07-27] MEDS: LOSARTAN POTASSIUM 25 MG TABLET. PO SCH (08:29)
[2016-07-27] MEDS: METOPROLOL TART IMMED RELEASE 50 MG TABLET. PO SCH (08:30)
[2016-07-27] MEDS: DIGOXIN 125 MCG TABLET. PO SCH (08:36)
[2016-07-27 09:41] LABS: HEMOGLOBIN 11.1 g/dL (12.0-15.5); RED BLOOD COUNT 3.38 x10^6/uL (3.50-5.40); WHITE BLOOD COUNT 4.6 x10^3/uL (4.0-11.0)
[2016-07-27 09:47] LABS: CALCIUM 8.8 mg/dL (8.5-10.1); CREATININE 1.2 mg/dL (0.6-1.0); GFR 55.3; POTASSIUM 3.8 mmol/L (3.5-5.1)
[2016-07-27 09:57] LABS: INR 2.6 (0.8-1.1); PROTHROMBIN TIME PATIENT 26.1 SEC (11.7-14.0)
[2016-07-27 11:00] VITALS: BP 105/61
[2016-07-27] MEDS ORDERED: WARF1TAB7 PO (13:10)
--- NOTE | 2016-07-27 13:14 | PDOC ---
SUBJECTIVE Subjective Hb stable , no further decline, still black stool but less frequent, INR therapeutic OBJECTIVE Vital Signs Vital Signs Date Time Temp Pulse Resp B/P (MAP) Pulse Ox O2 Delivery O2 Flow Rate FiO2 07/27/16 08:30 59 109/65 07/27/16 08:29 59 109/65 07/27/16 08:28 61 104/55 07/27/16 08:00 Room Air 07/27/16 07:00 98.6 61 18 104/55 (71) 100 Room Air 98.6 07/27/16 03:00 Room Air 07/26/16 23:53 98.0 59 18 109/65 (80) 97 Room Air 98.0 07/26/16 20:47 60 115/64 07/26/16 20:00 Room Air 07/26/16 19:57 97.7 60 20 115/64 (81) 99 Room Air 97.7 07/26/16 14:58 98.3 59 16 107/62 (77) 98 Room Air 98.3 I & O Intake and Output 07/27/16 07:00 Intake Total 810 ml Balance 810 ml Intake Oral 810 ml # Voids 4 PHYSICAL EXAM Physical Exam stable ASSESSMENT/PLAN Assessment/Plan home today , follow symptomes, INR and Hb out pt , she is scheduled for gastric emptying study out pt next week Problems: COMMENT Lab Laboratory Tests Test 07/27/16 09:31 White Blood Count 4.6 x10^3/uL (4.0-11.0) Red Blood Count 3.38 x10^6/uL (3.50-5.40) Hemoglobin 11.1 g/dL (12.0-15.5) Hematocrit 34.0 % (36.0-47.0) Mean Corpuscular Volume 101 fL (79-100) Mean Corpuscular Hemoglobin 33 pg (25-35) Mean Corpuscular Hemoglobin Concent 33 g/dL (31-37) Red Cell Distribution Width 17.0 % (11.5-14.5) Platelet Count 145 x10^3/uL (140-400) Prothrombin Time 26.1 SEC (11.7-14.0) Prothromb Time International Ratio 2.6 (0.8-1.1) Sodium Level 139 mmol/L (136-145) Potassium Level 3.8 mmol/L (3.5-5.1) Chloride Level 103 mmol/L (98-107) Carbon Dioxide Level 29 mmol/L (21-32) Anion Gap 7 (6-14) Blood Urea Nitrogen 10 mg/dL (7-20) Creatinine 1.2 mg/dL (0.6-1.0) Estimated GFR (Cockcroft-Gault) 55.3 Glucose Level 119 mg/dL (70-99) Calcium Level 8.8 mg/dL (8.5-10.1) SUSANNE PATIÑO MD Jul 27, 2016 13:14
--- NOTE | 2016-07-27 13:18 | PDOC3 ---
Discharge Summary* Date of Admission: Jul 24, 2016 Date of Discharge: Jul 27, 2016 Final Diagnosis 1- acute upper GI bleed from Bx site from EGD last week 2-coagulopathy due to anticoagulation treated with FFP 3-cardiomyopathy 4-chronic A.Fib and valvular heart disease CONSULTS GI Procedures CXR CT abd and pelvis, HB serial and FFP transfusion Brief Hospital Course Ms. Ponce is a 61 old [sex] who presented with [ ] Disposition/Orders: D/C to Home CONDITION AT DISCHARGE: Improved, Stable Diet: Cardiac Scheduled Amiodarone Hcl (Amiodarone Hcl), 200 MG PO DAILY Aspirin (Aspirin), 81 MG PO DAILY, (Reported) Calcium Carbonate/Vitamin D3 (Calcium 500+D Tablet Chew), 1 EACH PO DAILY, ( Reported) Desonide (Desonide), 15 GM TP BID, (Reported) Digoxin (Lanoxin), 125 MCG PO DAILY Fluticasone Propionate (Flonase), 1 SPRAY NS DAILY, (Reported) Losartan Potassium (Losartan Potassium), 25 MG PO HS, (Reported) Metoprolol Tartrate (Metoprolol Tartrate), 1 TAB PO BID Potassium Chloride (Klor-Con M20), 10 MEQ PO DAILYWBKFT Spironolactone (Spironolactone), 25 MG PO DAILY, (Reported) Torsemide (Torsemide), 20 MG PO DAILY08, (Reported) Warfarin Sodium (Warfarin Sodium), 1 TAB PO DAILY, (Reported) Scheduled PRN Acetaminophen (Acetaminophen), 1,000 MG PO Q6HRS PRN, (Reported) Diphenhydramine Hcl (Benadryl Allergy), 25 MG PO, (Reported) Esomeprazole Magnesium (Nexium Capsule), 40 MG PO, (Reported) Hydroxyzine Pamoate (Hydroxyzine Pamoate), 25 MG PO PRN Q6HRS PRN for ITCHING FOLLOW UP APPOINTMENT: gastric emptying study next week out pt Dr Patiño for PT/INR Thursday Time Spent Total time spent with patient [] minutes for coordination of care, counseling, and education. SUSANNE PATIÑO MD Jul 27, 2016 13:18
[2016-07-28] MEDS ORDERED: PANTOPRAZOLE 40 MG TABLET.DR. PO SCH (07:30)
== END 2016-07-27 13:40 | disposition home or self-care (01) | DRG 920 ==
LOC: 6 SOUTH 17:52
PROVIDERS: ADMIT Internal Medicine; ATTEND Internal Medicine
PROC: 30233L1 Transfusion of Nonautologous Fresh Plasma into Peripheral Vein, Percutaneous Approach (ICD-10-PCS; principal; 2016-07-25)
PROC: 30233K1 Transfusion of Nonautologous Frozen Plasma into Peripheral Vein, Percutaneous Approach (ICD-10-PCS; 2016-07-25)
DX: K91.840 Postprocedural hemorrhage of a digestive system organ or structure following a digestive system procedure (principal); D68.9 Coagulation defect, unspecified; I42.9 Cardiomyopathy, unspecified; I13.0 Hypertensive heart and chronic kidney disease with heart failure and stage 1 through stage 4 chronic kidney disease, or unspecified chronic kidney disease; D62 Acute posthemorrhagic anemia; E78.5 Hyperlipidemia, unspecified; G47.33 Obstructive sleep apnea (adult) (pediatric); K21.9 Gastro-esophageal reflux disease without esophagitis; I50.9 Heart failure, unspecified; N18.9 Chronic kidney disease, unspecified; K29.50 Unspecified chronic gastritis without bleeding; I48.2 Chronic atrial fibrillation; T45.515A Adverse effect of anticoagulants, initial encounter; K31.7 Polyp of stomach and duodenum; M19.90 Unspecified osteoarthritis, unspecified site; Z88.5 Allergy status to narcotic agent; Z88.8 Allergy status to other drugs, medicaments and biological substances; Z95.2 Presence of prosthetic heart valve; Y92.89 Other specified places as the place of occurrence of the external cause; Z79.899 Other long term (current) drug therapy; Z79.1 Long term (current) use of non-steroidal anti-inflammatories (NSAID); Z79.2 Long term (current) use of antibiotics; Y83.9 Surgical procedure, unspecified as the cause of abnormal reaction of the patient, or of later complication, without mention of misadventure at the time of the procedure
CPT/HCPCS: 36415; 71020; 74176; 80048; 80162; 82274; 85027; 85610; 86850; 86900; 86901; 86927; 88305; C9113; J1200; P9017

== ENCOUNTER → 2016-07-29 | Outpatient (CLI) | payer MEDICARE, OTHER ==
--- NOTE | 2016-07-25 15:41 | PREOP HP ---
DATE OF SERVICE: 07/29/2016 HISTORY OF PRESENT ILLNESS: The patient is admitted to room #660. She is a 61-year-old lady who was seen in the office yesterday on the day of admission complaining of abdominal discomfort and black tarry stool. She had an EGD done on 07/22/2016. A polyp was removed at that time, and she was diagnosed with chronic gastritis. She shortly after that procedure the next day felt very nauseated and did not feel good. She kept on having poor appetite. She had larger stool after drinking apple juice that was very dark in color and seemed to have blood in it. The patient continued to have black tarry stool, and she presented to the office yesterday where she had an INR of 3.3, and also on her rectal exam, she did have tarry stool with some tr blood also, and it was very positive guaiac. The patient had definitive bloody stool. She complains of being fatigued, tired, and not feeling good. She does have extensive past medical history significant for coronary artery disease, cardiomyopathy, congestive heart failure, valvular heart disease, and with history of mitral valve replacement, on chronic anticoagulation; pacemaker with internal defibrillator, hyperlipidemia, atrial fibrillation, hypertension, sleep apnea, gastroesophageal reflux disease, gastritis, history of cholecystectomy, hiatal hernia, obesity, previous history of kidney stones and UTIs, and history of gout. REVIEW OF SYSTEMS: CONSTITUTIONAL: She does feel fatigued and weak. HEENT: Denies sore throat or congestion. Denies visual changes. She does notice some yellowish color in her conjunctivae. PULMONARY: Denies cough or shortness of breath. HEART: Denies chest pain. GASTROINTESTINAL: She does have melena. She has noticed loose stools and diarrhea stools the last few days. Normally, she is constipated. She does have nausea, decreased appetite, does not feel good in general. GENITOURINARY: She does have stress incontinence. No hematuria. MUSCULOSKELETAL: She does have some arthralgias. NEUROLOGY: Denies focal weakness. PHYSICAL EXAMINATION: GENERAL: She is alert and oriented, in no acute distress, cooperative. HEENT: Tympanic membranes are clear. Pharynx is clear. Mucous membranes are moist. NECK: Supple. HEART: Irregularly irregular. LUNGS: Fairly clear to auscultation. ABDOMEN: Soft, nontender, no organomegaly, no masses, no bruits, no ascites. RECTAL: She had some polypoid feeling of lesions in her rectal area, felt harder than regular internal hemorrhoids. Her stool was definitely tarry with tr blood as well and very positive for guaiac. EXTREMITIES: Without edema, clubbing, or cyanosis. IMPRESSION: 1. Gastrointestinal bleed. The patient was anticoagulated for chronic atrial fibrillation. She is admitted. We will reverse her INR. Consult Gastroenterology. Continue to monitor her stools. 2. Anemia due to gastrointestinal bleed. 3. Cardiomyopathy and history of congestive heart failure. We will hold her Lasix, but we will be very careful with the fluid with her history of congestive heart failure. 4. Valvular heart disease, status post mitral valve replacement/coronary artery disease. 5. Sleep apnea. 6. Hypertension and hyperlipidemia. SUSANNE PATIÑO MD DR: STEVE/luna JOB#: [id number] / [id number]
[2016-07-27 11:00] VITALS: BP 105/61
[~2016-07-29] MED LIST changes: +WARF1TAB7 PO
--- NOTE | 2016-07-29 11:03 | RAD ---
Examination: Gastric Emptying Scintigraphy: Radiopharmaceutical: 2.0 mCi Tc-99m sulfur colloid mixed with a solid meal History: Bloating, nausea for 2 months. Findings: A routine solid-phase gastric emptying scintigraphy examination was performed. Anterior a abdominal images were obtained after ingestion of the standardized radiolabeled solid meal. Time activity curve was plotted. Findings: Percentage gastric emptying at 60 minutes is 23% with a T half of 134 minutes. Impression: Delayed gastric imaging.
== END | disposition home or self-care (01) ==
LOC: NM 08:36
PROVIDERS: ATTEND Internal Medicine Gastroenterology
DX: K31.84 Gastroparesis (principal)
CPT/HCPCS: 78264; A9541

== ENCOUNTER → 2018-06-10 | Outpatient (CLI) | payer MEDICARE, OTHER ==
[~2018-06-10] MED LIST changes: -AMIO200T2 PO; +AMIO200T4 PO; +CALC-658 PO; -CALC1TAB77 PO; -DIGO125T16 PO; +DIGO125T79 PO; -LOSA25TA4 PO; +LOSA25TA54 PO; -METO100T2 PO; +METO100T7 PO; -SPIR25TA3 PO; +SPIR25TA5 PO; +WARF-31 PO; +WARF1TAB69 PO; -WARF1TAB7 PO; +WARF3TAB50 PO; -WARF3TAB7 PO; -WARF5TAB7 PO; +WARF6TAB47 PO; -WARF6TAB7 PO
--- NOTE | 2018-06-10 15:37 | KCIC ---
Bilateral digital screening mammograms with 3-D tomosynthesis: Reason for examination: Routine screening. Multiple large keloids. Chronic boil in the left axilla. Comparison is made to previous studies dated 09/19/2015 and 09/08/2014. Bilateral mammograms in CC and oblique projections were obtained with 2-D imaging and 3-D tomosynthesis imaging on a Siemens Inspiration unit and reviewed on the workstation. Interpretation was made with the benefit of CAD. The skin and nipples show no abnormalities. No abnormal axillary lymph nodes are seen. There does appear to be a lesion consistent with a probable sebaceous cyst in the left axilla measuring 3 cm in greatest dimension. The breast parenchyma is heterogeneously dense. (Breast density: Category C.) There are clustered and scattered calcifications again seen which are stable. There are no new dominant masses, suspicious calcifications or architectural distortion. Impression: No evidence of malignancy. Recommend routine screening. Your patient's mammogram demonstrates that she has dense breast tissue (breast density category C or D), which could hide abnormalities, and if she has other risk factors for breast cancer that have been identified, she might benefit from supplemental screening tests that may be suggested by you as her ordering physician. Dense breast tissue, in and of itself, is a relatively common condition. Therefore, this information is not provided to cause undue concern, but rather to raise your awareness and to promote discussion with your patient regarding the presence of other risk factors, in addition to dense breast tissue. Your patient's mammography results will be sent to her. BI-RAD Category 2: Benign. "Our facility is accredited by the [employer] Mammography Program." This patient's information has been entered into a reminder system for the patient to be notified with the results of her examination and a target date for the next mammogram. Electronically signed by: Unique Morrow MD (06/10/2018 3:34 PM) [id number]
== END | disposition home or self-care (01) ==
LOC: KCIC MAMMO 11:39
PROVIDERS: ATTEND Internal Medicine
DX: Z12.31 Encounter for screening mammogram for malignant neoplasm of breast (principal); Z80.3 Family history of malignant neoplasm of breast
CPT/HCPCS: 77063; 77067

== ENCOUNTER → 2021-01-18 | Outpatient (CLI) | payer MEDICARE, OTHER ==
[~2021-01-18] MED LIST changes: -AMIO200T4 PO; +AMIO200T53 PO; +POTA-121 PO; -POTA20TA4 PO
--- NOTE | 2021-01-18 17:13 | RAD ---
US HEAD/NECK SOFT TISSUE History:Reason: LUMP IN NECK / Spl. Instructions: / History: Comparison: None Technique: Sonographic examination of the left submandibular region Findings: Small lymph node within the left submandibular region measures 1.2 x 1.5 cm. Homogeneous appearing le ft mandibular gland. No ductal dilatation. Impression: 1. Small left submandibular lymph node corresponding with patient's palpable concern. Recommend cont inued clinical follow-up and imaging follow-up if interval growth. Electronically signed by: Juan Ortiz DO (01/18/2021 5:11 PM) [id number]
--- NOTE | 2021-01-18 17:16 | RAD ---
US DPLX CAROTID BILAT History: Reason: ATHEROSCELROSIS/dizziness / Spl. Instructions: / History: COMPARISON: None Technique: Duplex sonography of the cervical portion of both carotid arteries was performed. Real-rachelle e grayscale, color flow Doppler, and Doppler spectral waveform analysis is performed. PQRS Compliance Statement - Stenosis calculations for CT, MR and conventional angiography are based u rashad measurement of the distal ICA diameter in accordance with the NASCET methodology. Stenosis calcu lations for carotid ultrasound studies are derived from validated velocity criteria which are known t o correlate with the NASCET methodology. Findings: Right side: Peak systolic flow velocity of the CCA is 81 cm/sec. Peak systolic flow velocity of the ICA is 53 cm/sec. The ICA/CCA ratio is 0.75. Peak end diastolic flow velocity of the ICA is 21 cm/sec. The peak systolic velocity of the ECA is 71 cm/sec. No significant plaque formation is identified. Left side: Peak systolic flow velocity of the CCA is 77 cm/sec. Peak systolic flow velocity of the ICA is 79 cm/sec. The ICA/CCA ratio is 1.1. Peak end diastolic flow velocity of the ICA is 38 cm/sec. Peak systolic flow velocity of the ECA is 61 cm/sec. No significant plaque formation is identified. Vertebral arteries: Bilateral vertebral arteries demonstrate antegrade flow. IMPRESSION: 1. No hemodynamically significant internal carotid artery stenosis. Electronically signed by: Juan Ortiz DO (01/18/2021 5:14 PM) [id number]
== END ==
LOC: US 09:56
PROVIDERS: ATTEND Internal Medicine
DX: R22.1 Localized swelling, mass and lump, neck (principal); M54.2 Cervicalgia; I70.90 Unspecified atherosclerosis
CPT/HCPCS: 76536; 93880